=== PATIENT | male | born 1965 | race American Indian/Alaskan Native ===

== ENCOUNTER 2020-06-23 18:09 | Inpatient (IN) | payer OTHER ==
[2020-06-23 18:56] LABS: Hematocrit 31.7 % (35.5-45.6); Mean Corpuscular HGB Conc 35 % (32-34); Mean Corpuscular Volume 93 fl (84-94); Platelet Count 168 K/mm3 (140-440); Red Cell Distribution Width 12.7 % (13.2-15.2)
[2020-06-23 18:58] LABS: Albumin 2.6 g/dL (3.9-5); Calcium 8.7 mg/dL (8.4-10.2)
[2020-06-23 21:31] LABS: Basophils % (Manual) 0 % (0.0-1.8); Total Cells Counted 100
[2020-06-23 21:32] LABS: Platelet Estimate Consistent w Auto; RBC Morphology Normal
[2020-06-23 21:52] LABS: Bilirubin,Urine NEG (Negative); Blood,Urine SM (Negative); Color,Urine Straw (Yellow); Mucus,Urine FEW /HPF; Protein,Urine <15 mg/dL mg/dL (Negative); Urobilinogen,Urine < 2.0 mg/dL (<2.0)
[2020-06-23 21:59] LABS: Amphetamine Screen,Urine Negative; Benzodiazepines Screen,Urine Negative; Cannabinoid Screen,Urine Negative; Cocaine Screen,Urine Negative; Methadone Screen,Urine Negative; Opiate Screen,Urine Negative
[2020-06-23] MEDS ORDERED: SODIUM CHLORIDE 0.9% 1000 ML 1,000 ML IV ONE (22:14)
[2020-06-23] MEDS ORDERED: ONDANSETRON 4 MG/2 ML INJ IV ONE (22:14)
--- NOTE | 2020-06-23 22:18 | Emergency Department Report ---
ED General Adult HPI - General Chief complaint: Recheck/Abnormal Lab/Rx Stated complaint: ABNORMAL LABS Time Seen by Provider: 06/23/20 18:20 Source: patient Mode of arrival: Ambulatory Limitations: No Limitations - History of Present Illness Initial comments: Patient is 55 years old male currently admitted to [facility] voluntarily for suicidal ideation and drug rehab. Patient has history of diabetes and hypertension. Patient brought to the emergency room for evaluation of abnormal creatinine. Patient brought to the emergency room with a paper stating that he has a creatinine done on June 19 and it was 2.2. Creatinine repeated yesterday and he was 6.9 and today his creatinine is 7. Patient stated that he has nausea but no vomiting. Patient stated that he has been drinking and eating well. Patient denies any shortness of breath, chest pain, weakness numbness or tingling sensation. -: days(s) - Related Data Allergies Allergy/AdvReac Type Severity Reaction Status Date / Time No Known Allergies Allergy Unverified 06/23/20 18:11 ED Review of Systems ROS: Stated complaint: ABNORMAL LABS Other details as noted in HPI Comment: All other systems reviewed and negative Constitutional: denies: chills, fever Respiratory: denies: cough, orthopnea, shortness of breath, SOB with exertion, SOB at rest, stridor, wheezing Cardiovascular: denies: chest pain, palpitations Gastrointestinal: nausea, vomiting. denies: abdominal pain, diarrhea, constipation, hematemesis, melena, hematochezia Musculoskeletal: denies: back pain Neurological: denies: headache, weakness ED Past Medical Hx - Past Medical History Hx Hypertension: Yes Hx Diabetes: Yes Hx Psychiatric Treatment: Yes (MAJOR DEPRESSIVE DISORDER, POLYSUBSTANCE ABUSE/ ANXIETY) Additional medical history: HIV/PE - Surgical History Additional Surgical History: GASTRIC BYPASS/KIDNEY STONE - Social History Smoking Status: Never Smoker Substance Use Type: Alcohol, Cocaine ED Physical Exam - General Limitations: No Limitations General appearance: alert, in no apparent distress - Head Head exam: Present: atraumatic, normocephalic, normal inspection - Eye Eye exam: Present: normal appearance, PERRL - ENT ENT exam: Present: mucous membranes dry - Neck Neck exam: Present: normal inspection, full ROM. Absent: tenderness, meningismus - Respiratory Respiratory exam: Present: normal lung sounds bilaterally - Cardiovascular Cardiovascular Exam: Present: regular rate, normal rhythm, normal heart sounds - GI/Abdominal GI/Abdominal exam: Present: soft, normal bowel sounds. Absent: distended, tenderness, guarding, rebound, rigid, organomegaly, mass, bruit, pulsatile mass, hernia - Extremities Exam Extremities exam: Present: normal inspection, full ROM, normal capillary refill. Absent: pedal edema, calf tenderness - Back Exam Back exam: Present: normal inspection, full ROM. Absent: CVA tenderness (R), CVA tenderness (L) - Neurological Exam Neurological exam: Present: alert, oriented X3, CN II-XII intact, normal gait, reflexes normal. Absent: motor sensory deficit - Psychiatric Psychiatric exam: Present: normal mood - Skin Skin exam: Present: warm, intact, normal color ED Course Vital Signs 06/23/20 18:15 Temperature 98.6 F Pulse Rate 87 Respiratory 20 Rate Blood Pressure 189/94 O2 Sat by Pulse 96 Oximetry ED Medical Decision Making - Lab Data Result diagrams: 06/23/20 18:26 06/23/20 18:26 - Radiology Data Radiology results: report reviewed Critical care attestation.: If time is entered above; I have spent that time in minutes in the direct care of this critically ill patient, excluding procedure time. ED Disposition Clinical Impression: Acute renal failure Disposition: OP ADMIT IP TO THIS HOSP Is pt being admited?: Yes Condition: Stable
[2020-06-23] MEDS ORDERED: SODIUM CHLORIDE 0.9% 1000 ML 1,000 ML IV SCH (23:45)
[2020-06-24] MEDS ORDERED: ONDANSETRON 4 MG/2 ML INJ IV PRN (00:02)
[2020-06-24] MEDS ORDERED: traMADol 50 MG TAB PO PRN (00:02)
[2020-06-24] MEDS ORDERED: traZODone 50 MG TAB PO PRN (00:02)
[2020-06-24] MEDS ORDERED: LACTULOSE 20 GM/30 ML ORAL LIQD PO PRN (00:02)
--- NOTE | 2020-06-24 00:14 | XRay Report ---
CHEST 1 VIEW INDICATION / CLINICAL INFORMATION: SOB. COMPARISON: Chest CT 10/18/2019 FINDINGS: SUPPORT DEVICES: None. HEART / MEDIASTINUM: No significant abnormality. LUNGS / PLEURA: No significant pulmonary or pleural abnormality. No pneumothorax. ADDITIONAL FINDINGS: No significant additional findings. IMPRESSION: 1. No acute findings. Signer Name: Mckenna Hurtado MD Signed: 06/24/2020 12:10 AM Workstation Name: [id number]
--- NOTE | 2020-06-24 01:38 | History and Physical Report ---
History of Present Illness Date of examination: 06/23/20 Date of admission: 06/23/20 23:25 Chief complaint: MAIK History of present illness: Patient is 55 years old male currently admitted to [facility] voluntarily for suicidal ideation and drug rehab. Patient has history of diabetes and hypertension. Patient brought to the emergency room for e valuation of abnormal creatinine. Per ED record-Patient brought to the emergency room with a paper stating that he has a creatinine done on June 19 and it was 2.2. Creatinine repeated yesterday and he was 6.9 and today his creatinine is 7. Patient stated that he has nausea but no vomiting. Patient seen in Ed in no acute distress-on room air. He admits drinking and eating well. Patient denies any shortness of breath, chest pain, weakness numbness or tingling sensation. ED Work up shows: WBC 4.5, hemoglobin 11.0, sodium 128, potassium 4.1 C02 14, serum glucose 143 patient started on IV hydration with bicarb Chest [id number] no acute finding Past History Past Medical History: diabetes, hypertension, renal failure, other (Bipolar, anxiety depression) Past Surgical History: No surgical history Social history: smoking, alcohol abuse, IV drug use Family history: no significant family history Medications and Allergies Allergies Allergy/AdvReac Type Severity Reaction Status Date / Time No Known Allergies Allergy Verified 06/24/20 00:07 Active Meds: Active Medications Sodium Chloride (Nacl 0.9% 1000 Ml) 1,000 mls @ 100 mls/hr IV DIRECT LYDIA Lactulose (Cephulac) 20 gm PO QHS PRN PRN Reason: Constipation Ondansetron HCl (Zofran) 4 mg IV Q4H PRN PRN Reason: Nausea And Vomiting Tramadol HCl (Ultram) 25 mg PO Q4H PRN PRN Reason: Pain, Moderate (4-6) Trazodone HCl (Desyrel) 50 mg PO QHS PRN PRN Reason: Insomnia Review of Systems Constitutional: no lethargy, no chronic headaches Ears, nose, mouth and throat: no epistaxis Cardiovascular: high blood pressure, no rapid/irregular heart beat Respiratory: no respiratory infections Gastrointestinal: no abdominal pain Genitourinary Male: no hematuria Rectal: no incontinence Musculoskeletal: no shooting arm pain, no arm numbness/tingling Psychiatric: other (Patient has hx of Psych-came from [facility] with abnormal kidney function) Endocrine: no flushing, no increase in ring/shoe/hat size Hematologic/Lymphatic: no lymphadenopathy Exam - Constitutional Vitals: Temp Pulse Resp BP Pulse Ox 99.0 F 76 20 183/101 93 06/24/20 01:28 06/24/20 01:28 06/24/20 01:28 06/24/20 01:28 06/24/20 01:28 General appearance: Present: no acute distress, obese - EENT Eyes: Present: PERRL ENT: hearing intact, clear oral mucosa - Neck Neck: Present: supple, normal ROM - Respiratory Respiratory effort: normal Respiratory: bilateral: CTA - Cardiovascular Heart rate: 76 Heart Sounds: Present: S1 & S2. Absent: rub, click - Extremities Extremities: pulses symmetrical, No edema Peripheral Pulses: within normal limits - Abdominal General gastrointestinal: Present: soft, non-tender, non-distended, normal bowel sounds Male genitourinary: Present: normal - Integumentary Integumentary: Present: clear, warm, dry - Musculoskeletal Musculoskeletal: gait normal, strength equal bilaterally - Psychiatric Psychiatric: cooperative - Neurologic Neurologic: CNII-XII intact, moves all extremities - Allied Health Allied health notes reviewed: nursing Results - Labs CBC & Chem 7: 06/23/20 18:26 06/23/20 18:26 Labs: Abnormal lab results 06/23/20 06/23/20 Range/Units 18:26 18:26 RBC 3.40 L (3.65-5.03) M/mm3 Hgb 11.0 L (11.8-15.2) gm/dl Hct 31.7 L (35.5-45.6) % MCHC 35 H (32-34) % RDW 12.7 L (13.2-15.2) % Monocytes % (Manual) 13.0 H (0.0-7.3) % Sodium 128 L (137-145) mmol/L Carbon Dioxide 14 L (22-30) mmol/L BUN 55 H (9-20) mg/dL Creatinine 7.0 H (0.8-1.3) mg/dL Glucose 143 H (75-100) mg/dL Total Protein 11.5 H (6.3-8.2) g/dL Albumin 2.6 L (3.9-5) g/dL Assessment and Plan - Patient Problems (1) Acute renal failure Current Visit: Yes Status: Acute Plan to address problem: MAIK ? cause IV hydration with normal saline Office Support Specialist consult Renal US-f/u with result Monitor Kidney function Avoid nephrotoxic drug (2) Hypertension Current Visit: Yes Status: Acute Plan to address problem: Monitor blood pressure PRN labetolol Will resume home BP med Will adjust BP if needed (3) Illicit drug use Current Visit: Yes Status: Acute Plan to address problem: Patie admits cocain use 05/30, 06/15 Discussed cacain use cessation (4) Anxiety and depression Current Visit: Yes Status: Acute Plan to address problem: Patient came from [facility] due to reduced kidney function Resume ant Psychotic meds Psych consulted (5) Diabetes Current Visit: Yes Status: Acute Plan to address problem: Pt reports hx of diabetes on Metformin Will Hold metformin in the setting of MAIK Office Support Specialist consulted for MAIK Monitor blood sugar with SSI Check Hga1c (6) Metabolic acidosis Current Visit: Yes Status: Acute Plan to address problem: likely 2/2 MAIK Continue bicarb gtt at 75 cc/hr Monitor kidney function (7) Hyponatremia Current Visit: Yes Status: Acute Plan to address problem: possible 2/2 to reduced kidney function/dehydration Monitor sodium levels (8) DVT prophylaxis Current Visit: Yes Status: Acute Plan to address problem: SQH
[2020-06-24 06:26] LABS: Hemoglobin 9.8 gm/dl (11.8-15.2); Mean Corpuscular HGB Conc 34 % (32-34); Mean Corpuscular Volume 93 fl (84-94); Platelet Count 171 K/mm3 (140-440); Red Blood Count 3.12 M/mm3 (3.65-5.03); Red Cell Distribution Width 12.7 % (13.2-15.2)
[2020-06-24 06:27] LABS: Albumin 2.5 g/dL (3.9-5); Calcium 8.6 mg/dL (8.4-10.2)
[2020-06-24 08:08] LABS: Total Cells Counted 100
[2020-06-24 08:09] LABS: Anisocytosis 1+; Platelet Estimate Consistent w Auto
[2020-06-24] MEDS: INSULIN LISPRO 100 UNIT/ML VIAL 3 mL SUB-Q SCH ×4 (08:17→21:48)
[2020-06-24] MEDS ORDERED: LOSARTAN 50 MG TAB PO SCH (10:00)
[2020-06-24] MEDS ORDERED: hydroCHLOROthiazide 25 MG TAB PO SCH (10:00)
[2020-06-24] MEDS: ARIPiprazole 10 MG TAB PO SCH (10:46)
[2020-06-24] MEDS: FLUoxetine 20 MG CAP PO SCH (10:46)
--- NOTE | 2020-06-24 11:00 | Consultation ---
History of Present Illness - Reason for Consult Consult date: 06/24/20 Cellulitis Requesting physician: PEDRO BLANKENSHIP - History of Present Illness 55 years old male with history of morbid obesity, diabetes mellitus, hypertension, depression/suicidal ideation, drug abuse, currently admitted at [facility] voluntarily for suicidal ideation, admitted secondary to abnormal creatinine. Patient also noticed some nausea and generalized malaise. Denies fever, chills, injury. He has chronic left ankle discoloration and edema from an old DVT. Lab work done on June 19, 2020 creatinine found 2.2, repeat creatinine 6.9 on June 23, 2020. On arrival, patient is afebrile and normal WBC. Creat 7. Venous US with left leg acute DVT, right leg chronic DVT. Review of Systems: positive in bold print General: fever, chills, malaise Cutaneous: rash, pruritus Head: headaches or injury Eyes: changes in vision, eye pain, double vision Ears: ear pain, ear discharge, ringing or hearing loss Nose: nose bleeding, stuffiness Mouth & throat: bleeding gums, horseness, no dental problems, or swollen glands Neck: no pain, node enlargement/lumps, tyroid enlargement or tenderness Respiratory: SOB, cough, TAVERA, wheezing, sputum, hemoptysis, pleuritic chest pain Cardiovascular: chest pain, leg edema, cyanosis, TAVERA, orthopnea Musculoskeletal: chronic left ankle deformity and edema Gastrointestinal: nausea, vomiting, hematemesis, diarrhea, constipation, melena, bright red blood in stools, fecal incontinence, jaundice Genitourinary/Reproductive: frequent urination, dysuria, hematuria, incontinence Neurogical: seizures, headaches, weakness, paresthesias, loss of speech or vision; memory loss, vertigo, tremors, numbness Psychiatric: stable mood; excessive anxiety, sadness or moodiness Past History Past Medical History: diabetes, hypertension, renal failure, other (Bipolar, anxiety depression) Past Surgical History: No surgical history Social history: smoking, alcohol abuse, IV drug use Family history: no significant family history Medications and Allergies Allergies Allergy/AdvReac Type Severity Reaction Status Date / Time No Known Allergies Allergy Verified 06/24/20 00:07 Active Meds: Active Medications Aripiprazole (Aripiprazole) 10 mg PO QDAY LYDIA Last Admin: 06/24/20 10:46 Dose: 10 mg Documented by: Fluoxetine HCl (Prozac) 40 mg PO QDAY LYDIA Last Admin: 06/24/20 10:46 Dose: 40 mg Documented by: Sodium Chloride (Nacl 0.9% 1000 Ml) 1,000 mls @ 100 mls/hr IV DIRECT LYDIA Sodium Bicarbonate 150 meq/ (Dextrose) 1,150 mls @ 75 mls/hr IV DIRECT LYDIA Insulin Human Lispro (Humalog) 0 unit SUB-Q ACHS LYDIA; Protocol Labetalol HCl (Labetalol) 10 mg IV Q6HR PRN PRN Reason: Hypertension Last Admin: 06/24/20 02:07 Dose: 10 mg Documented by: Lactulose (Cephulac) 20 gm PO QHS PRN PRN Reason: Constipation Ondansetron HCl (Zofran) 4 mg IV Q4H PRN PRN Reason: Nausea And Vomiting Quetiapine Fumarate (Seroquel) 50 mg PO QHS LYDIA Tramadol HCl (Ultram) 25 mg PO Q4H PRN PRN Reason: Pain, Moderate (4-6) Trazodone HCl (Desyrel) 50 mg PO QHS PRN PRN Reason: Insomnia Last Admin: 06/24/20 02:07 Dose: 50 mg Documented by: Physical Examination - Physical Exam Narrative exam: General appearance: Alert in NAD pleasant Eyes: anicteric sclerae, moist conjunctivae; no lid-lag; PERRLA HENT: Normocephalic, Atraumatic; normal external ears, nares open, oropharynx clear Neck: supple, tracheal midline, no JVD Lungs: CTA, with normal respiratory effort and no intercostal retractions CV: RRR no murmur Abdomen: Soft, non-tender; no masses or hepatosplenomegaly Extremities: gregorio leg varus deformities, left ankle deformity, chronic skin discoloaration, edemaand heat Skin: No rash. Psych: no agitated Neuro: alert and oriented x 3. Moving all extermities - Constitutional Vitals: Vital Signs Temp Pulse Resp BP Pulse Ox 98.3 F 78 20 136/74 96 06/24/20 07:40 06/24/20 08:02 06/24/20 07:40 06/24/20 07:40 06/24/20 07:40 Temperature -Last 24 Hours Temperature 98.3 F Temperature 98.4 F Temperature 99.0 F Temperature 98.6 F Results - Labs CBC & Chem 7: 06/24/20 04:00 06/24/20 10:21 Labs: Abnormal lab results 06/23/20 06/23/20 06/24/20 Range/Units 18:26 18:26 01:55 WBC (4.5-11.0) K/mm3 RBC 3.40 L (3.65-5.03) M/mm3 Hgb 11.0 L (11.8-15.2) gm/dl Hct 31.7 L (35.5-45.6) % MCHC 35 H (32-34) % RDW 12.7 L (13.2-15.2) % Seg Neuts % (Manual) (40.0-70.0) % Monocytes % (Manual) 13.0 H (0.0-7.3) % Lymphocytes # (Manual) (1.2-5.4) K/mm3 D-Dimer 291.13 H (0-234) ng/mlDDU Sodium 128 L (137-145) mmol/L Chloride (98-107) mmol/L Carbon Dioxide 14 L (22-30) mmol/L BUN 55 H (9-20) mg/dL Creatinine 7.0 H (0.8-1.3) mg/dL Glucose 143 H (75-100) mg/dL Phosphorus (2.5-4.5) mg/dL Total Protein 11.5 H (6.3-8.2) g/dL Albumin 2.6 L (3.9-5) g/dL 06/24/20 06/24/20 06/24/20 Range/Units 01:57 04:00 04:00 WBC 4.0 L (4.5-11.0) K/mm3 RBC 3.12 L (3.65-5.03) M/mm3 Hgb 9.8 L (11.8-15.2) gm/dl Hct 29.0 L (35.5-45.6) % MCHC (32-34) % RDW 12.7 L (13.2-15.2) % Seg Neuts % (Manual) 73.0 H (40.0-70.0) % Monocytes % (Manual) 9.0 H (0.0-7.3) % Lymphocytes # (Manual) 0.6 L (1.2-5.4) K/mm3 D-Dimer (0-234) ng/mlDDU Sodium 134 L (137-145) mmol/L Chloride 109.9 H (98-107) mmol/L Carbon Dioxide 20 L (22-30) mmol/L BUN 57 H (9-20) mg/dL Creatinine 7.1 H (0.8-1.3) mg/dL Glucose 106 H (75-100) mg/dL Phosphorus 4.90 H (2.5-4.5) mg/dL Total Protein 11.1 H (6.3-8.2) g/dL Albumin 2.5 L (3.9-5) g/dL Assessment and Plan Cultures: none Assessment: 55 years old male with history of morbid obesity, diabetes mellitus, hypertension, depression/suicidal ideation, drug abuse, currently admitted at [facility] voluntarily for suicidal ideation, admitted secondary to abnormal creatinine: #Left ankle chronic edema and skin discoloration less likely cellulitis. On exam positive heat. Patient with no fever and no leukocytosis, no evidence of sepsis. US with acute left leg DVT. #Left leg acute DVT #MAIK: per renal Recommendations: -Monitor off antibiotics doubt cellulitis -DVT management per PCP -Check CRP Will follow. Gayle Gallo MD Infectious Diseases Boiler Testing Technician [facility] M [phone] O [phone]
--- NOTE | 2020-06-24 11:17 | Consultation ---
History of Present Illness - Reason for Consult Consult date: 06/24/20 Reason for consult: SI, from [facility] - History of Present Psychiatric Illness Lv Gipson is a 55y/o male patient who presented to the ER from [facility] for evaluation of abnormal labs. The patient says "my kidney labs were off." The patient says he checked himself into [facility] for suicidal thoughts. He says he has been "detached from my family." The patient also verba lizes "crack" usage. He also says he "drinks a 6 pack daily and a 5th of Vodka over 2 days." The patient says his last drinks was "June 15." he denies any withdrawal symptoms. He says he is "severely depressed and has suicidal thoughts that come and go." He states, "but at the moment I'm not suicidal." He says he was just started on medicatons at [place]. The patient denies hallucinations o f any kind. PAST PSYCHIATRIC HISTORY Diagnoses: bipolar Suicide attempts or Self-harm behavior: Denies Prior psychiatric hospitalizations: Yes Substance Abuse history: None reported Previous psychiatric medications tried: abilify, prozac, seroquel Outpatient treatment: [facility] PAST MEDICAL HISTORY: None reported Family Psychiatric History: None reported or documented SOCIAL HISTORY Marital Status: Single Living Arrangements: with family Employment Status: Unemployed Access to guns/weapons: None reported Education: high school History of Abuse: None reported Legal History: Denies REVIEW OF SYSTEMS Constitutional: Negative for weight loss ENT: Negative for stridor Respiratory: Negative for cough or hemoptysis All other systems reviewed and are negative MENTAL STATUS EXAMINATION General Appearance and Behavior: Age appropriate, good hygiene, wearing appropriate clothes, good eye contact Cooperation: Participating/engaged Psychomotor Behavior: Psychomotor normal Mood: "severely depressed" Affect and affective range: Congruent with mood Thought Process: logical Thought Content: hopelessness Speech: Normal rate, volume and rhythm Suicidal Ideation: comes and goes Homicidal Ideation: Denies HI Hallucinations: Denies Delusions: None elicited Impulse Control: Impaired Insight and Judgment: Limited insight and judgment Memory: Normal Attention: Normal Orientation: Alert, oriented Assessment and Plan Bipolar Disorder, Current Episode Depressed w/o Psychotic Features Cocaine Use Disorder Alcohol Use Disorder Treatment Plan Agree with current meds Sitter: Defer to primary Medical: Per primary Disposition: TBD once medically clear. Will see how the patient progresses. If suicidal thoughts return, and the patient continues to be severely depressed will likely need to return to [facility]. Will follow. Thank you for this consult. Case discussed with Dr. Dominguez. Medications and Allergies Allergies Allergy/AdvReac Type Severity Reaction Status Date / Time No Known Allergies Allergy Verified 06/24/20 00:07 Active Meds: Active Medications Aripiprazole (Aripiprazole) 10 mg PO QDAY LYDIA Last Admin: 06/24/20 10:46 Dose: 10 mg Documented by: Fluoxetine HCl (Prozac) 40 mg PO QDAY LYDIA Last Admin: 06/24/20 10:46 Dose: 40 mg Documented by: Sodium Chloride (Nacl 0.9% 1000 Ml) 1,000 mls @ 100 mls/hr IV DIRECT LYDIA Sodium Bicarbonate 150 meq/ (Dextrose) 1,150 mls @ 75 mls/hr IV DIRECT LYDIA Insulin Human Lispro (Humalog) 0 unit SUB-Q ACHS LYDIA; Protocol Labetalol HCl (Labetalol) 10 mg IV Q6HR PRN PRN Reason: Hypertension Last Admin: 06/24/20 02:07 Dose: 10 mg Documented by: Lactulose (Cephulac) 20 gm PO QHS PRN PRN Reason: Constipation Ondansetron HCl (Zofran) 4 mg IV Q4H PRN PRN Reason: Nausea And Vomiting Quetiapine Fumarate (Seroquel) 50 mg PO QHS LYDIA Tramadol HCl (Ultram) 25 mg PO Q4H PRN PRN Reason: Pain, Moderate (4-6) Trazodone HCl (Desyrel) 50 mg PO QHS PRN PRN Reason: Insomnia Last Admin: 06/24/20 02:07 Dose: 50 mg Documented by: Mental Status Exam - Vital signs Last Vital Signs Temp 98.3 F 06/24/20 07:40 Pulse 78 06/24/20 08:02 Resp 20 06/24/20 07:40 BP 136/74 06/24/20 07:40 Pulse Ox 96 06/24/20 07:40 Results Result Diagrams: 06/24/20 04:00 06/24/20 04:00 Abnormal lab results 06/23/20 06/23/20 06/24/20 Range/Units 18:26 18:26 01:55 WBC (4.5-11.0) K/mm3 RBC 3.40 L (3.65-5.03) M/mm3 Hgb 11.0 L (11.8-15.2) gm/dl Hct 31.7 L (35.5-45.6) % MCHC 35 H (32-34) % RDW 12.7 L (13.2-15.2) % Seg Neuts % (Manual) (40.0-70.0) % Monocytes % (Manual) 13.0 H (0.0-7.3) % Lymphocytes # (Manual) (1.2-5.4) K/mm3 D-Dimer 291.13 H (0-234) ng/mlDDU Sodium 128 L (137-145) mmol/L Chloride (98-107) mmol/L Carbon Dioxide 14 L (22-30) mmol/L BUN 55 H (9-20) mg/dL Creatinine 7.0 H (0.8-1.3) mg/dL Glucose 143 H (75-100) mg/dL Phosphorus (2.5-4.5) mg/dL Total Protein 11.5 H (6.3-8.2) g/dL Albumin 2.6 L (3.9-5) g/dL 06/24/20 06/24/20 06/24/20 Range/Units 01:57 04:00 04:00 WBC 4.0 L (4.5-11.0) K/mm3 RBC 3.12 L (3.65-5.03) M/mm3 Hgb 9.8 L (11.8-15.2) gm/dl Hct 29.0 L (35.5-45.6) % MCHC (32-34) % RDW 12.7 L (13.2-15.2) % Seg Neuts % (Manual) 73.0 H (40.0-70.0) % Monocytes % (Manual) 9.0 H (0.0-7.3) % Lymphocytes # (Manual) 0.6 L (1.2-5.4) K/mm3 D-Dimer (0-234) ng/mlDDU Sodium 134 L (137-145) mmol/L Chloride 109.9 H (98-107) mmol/L Carbon Dioxide 20 L (22-30) mmol/L BUN 57 H (9-20) mg/dL Creatinine 7.1 H (0.8-1.3) mg/dL Glucose 106 H (75-100) mg/dL Phosphorus 4.90 H (2.5-4.5) mg/dL Total Protein 11.1 H (6.3-8.2) g/dL Albumin 2.5 L (3.9-5) g/dL All other labs normal.
[2020-06-24 11:42] LABS: Calcium 8.4 mg/dL (8.4-10.2)
[2020-06-24 11:42] LABS: Osmolality,Urine 268 Mosm/kg
[2020-06-24] MEDS ORDERED: FLU VACC QUAD 2020-2021 (6 months +)/PF 60 0.5 ML SYRINGE IM ONE (12:00)
--- NOTE | 2020-06-24 12:17 | Consultation ---
History of Present Illness - Reason for Consult Consult date: 06/24/20 acute renal failure - History of Present Illness This is a 55 year old male currently admitted to [facility] voluntarily for suicidal ideation and drug rehab who presents for MAIK. Patient has history of diabetes and hypertension, notes a prior creatinine of 2.2 earlier this month. States that he has never known of any kidney issues but was told in the past that he has protein in his urine. Creatinine repeated yesterday and was 6.9 so he was sent to ED. He notes that he feels well and denies any acute issues. He admits drinking and eating well. Patient denies any shortness of breath, chest pain, weakness numbness or tingling sensation, appetite changes. Notes normal urination. Denies any new medications, alcohol/methanol ingestion, IV drugs, salicylate/NSAID use. No new supplements. Past History Past Medical History: diabetes, hypertension, renal failure, other (Bipolar, anxiety depression) Past Surgical History: No surgical history Social history: smoking, alcohol abuse, IV drug use Family history: no significant family history Medications and Allergies Allergies Allergy/AdvReac Type Severity Reaction Status Date / Time No Known Allergies Allergy Verified 06/24/20 00:07 Active Meds: Active Medications Aripiprazole (Aripiprazole) 10 mg PO QDAY [facility] Last Admin: 06/24/20 10:46 Dose: 10 mg Documented by: Fluoxetine HCl (Prozac) 40 mg PO QDAY LYDIA Last Admin: 06/24/20 10:46 Dose: 40 mg Documented by: Sodium Chloride (Nacl 0.9% 1000 Ml) 1,000 mls @ 100 mls/hr IV DIRECT LYDIA Sodium Bicarbonate 150 meq/ (Dextrose) 1,150 mls @ 75 mls/hr IV DIRECT LYDIA Insulin Human Lispro (Humalog) 0 unit SUB-Q ACHS [facility]; Protocol Labetalol HCl (Labetalol) 10 mg IV Q6HR PRN PRN Reason: Hypertension Last Admin: 06/24/20 02:07 Dose: 10 mg Documented by: Lactulose (Cephulac) 20 gm PO QHS PRN PRN Reason: Constipation Ondansetron HCl (Zofran) 4 mg IV Q4H PRN PRN Reason: Nausea And Vomiting Quetiapine Fumarate (Seroquel) 50 mg PO QHS LYDIA Tramadol HCl (Ultram) 25 mg PO Q4H PRN PRN Reason: Pain, Moderate (4-6) Trazodone HCl (Desyrel) 50 mg PO QHS PRN PRN Reason: Insomnia Last Admin: 06/24/20 02:07 Dose: 50 mg Documented by: Review of Systems All systems: negative (as per HPI) Exam - Vital Signs Vital signs: Vital Signs Temp Pulse Resp BP Pulse Ox 98.6 F 87 20 189/94 96 06/23/20 18:15 06/23/20 18:15 06/23/20 18:15 06/23/20 18:15 06/23/20 18:15 - Physical Exam Narrative exam: Constitutional: no acute distress Head: NC/AT Neck: supple Lungs: clear to auscultation CV: RRR, no M/R/G Abdomen: soft, non-tender, bowel sounds present Back: nontender Extremities: no edema, pulses WNL Skin: intact Neuro: no focal deficits, alert and oriented x4 Results - Lab Results 06/24/20 04:00 06/24/20 10:21 Most recent lab results Calcium 8.4 mg/dL (8.4-10.2) 06/24/20 10:21 Phosphorus 4.90 mg/dL (2.5-4.5) H 06/24/20 01:57 Magnesium 1.90 mg/dL (1.7-2.3) 06/24/20 01:57 Urine Sodium 74 mmol/L 06/24/20 06:00 Assessment and Plan # Acute Kidney Injury: unclear cause of MAIK, consider obstruction given acuity. On IVF for pre-renal consideration. Denies any toxic ingestion with panels mostly WNL. Potential glomerular causes given hematuria, no proteinuria noted. Little to suggest interstitial injury. BP reasonable. Potential injury from IV drug use. - renal ultrasound pending to r/o obstruction - toxicology reviewed as available, ordered methanol/isopropyl screens - serologies ordered, check CK - agree with IVF as tolerated - strict Is/Os - avoid nephrotoxins - holding home diuretic, SHIRA/ARB - biopsy pending above - no immediate HD indications, will follow based on lab trend, consider 24 hour creatinine clearance if not improving with no obvious cause # HTN: holding home meds given MAIK, use carvedilol or amlodipine if needed for now # Acidosis: likely due to MAIK, agree with HCO3 repletion # Illicit Drug Use: noted per primary, did not admit use to myself # Depression: appreciate psych input # DM: agree with holding metformin # Secondary Hyperparathyroidism: P mildly high, PTH reasonable for this kidney function
[2020-06-24 12:49] LABS: Creatinine,Urine 69.2 mg/dL (0.1-20.0); Protein/Creatinine Ratio,Urine 0.48
--- NOTE | 2020-06-24 14:56 | Progress Note ---
Assessment and Plan --Acute left lower extremity DVT Placed on heparin drip to bridge with Coumadin -- MAIK on CKD Likely due to ATN Continue IV hydration with normal saline Restorative Art Embalmer consulted Renal US order-f/u with result Monitor Kidney function daily Avoid nephrotoxic drug -- Hypertension Monitor blood pressure PRN labetolol Resumed home BP med and adjust BP if needed -- Illicit drug use Patie admits cocain use 05/30, 06/15 Discussed cacain use cessation --Anxiety and depression Patient came from [facility] due to reduced kidney function Resume ant Psychotic meds Psych consulted -- Diabetes type 2 Pt reports hx of diabetes on Metformin Will Hold metformin in the setting of MAIK Restorative Art Embalmer consulted for MAIK Monitor blood sugar with SSI Check Hga1c -- Metabolic acidosis likely 2/2 MAIK Continue bicarb gtt at 75 cc/hr Monitor kidney function -- Hyponatremia possible 2/2 to reduced kidney function/dehydration Monitor sodium levels --Morbid obesity with BMI 46.7 Weight reduction counseling with diet and exercise when clinically stable as outpatient -- DVT prophylaxis SQH brief History: This is a 55 year old male with h/o DM, HTN, CKD with a prior creatinine of 2.2 earlier this month currently admitted to [facility] voluntarily for suicidal ideation and drug rehab who presented to [facility] for MAIK. Denies any new medications, alcohol/methanol ingestion, IV drugs, salicylate/ NSAID use. BUN/Cr in the Er was 55/7.0, patient placed on IV fluid, consulted nephrology and admitted for further mx. 06/24: Continue to monitor BMP, continue IV fluid. Follow psychiatry and nephr ology recommendation. start heparin drip for acute LE DVT Subjective Date of service: 06/24/20 Interval history: Patient seen and examined. Medical records and medication list reviewed. No acute event overnight noted by the RN. Patient denies any chest pain or difficulty breathing. Patient is tolerating diet. Discussed plan of care at bedside with patient. Objective - Exam Narrative Exam: GENERAL: well-developed and morbidly obese -[place] male lying on bed appeared to be in no discomfort. HEENT: Normocephalic. Atraumatic. No conjunctival congestion or icterus. Patient has moist mucous membranes. NECK: Supple. Trachea midline. CHEST/LUNGS: Clear to auscultated bilaterally, breathing nonlabored. No wheezes crackles or rhonchi. HEART/CARDIOVASCULAR: Regular in rate and rhythm. S1 and S2 positive. ABDOMEN: Abdomen is soft, nontender. Patient has normal bowel sounds. SKIN: There is no rash. Warm and dry. NEURO: No focal motor deficit. Follows command. MUSCULOSKELETAL: No joint effusion or tenderness. EXTRIMITY: No edema, no cyanosis or clubbing. Left lower extremity calf tenderness PSYCH: Cooperative. - Constitutional Vitals: Vital Signs - 12hr 06/24/20 06/24/20 06/24/20 04:09 07:40 08:02 Temperature 98.4 F 98.3 F Pulse Rate 78 77 78 Respiratory 16 20 Rate Blood Pressure 125/68 136/74 O2 Sat by Pulse 95 96 Oximetry 06/24/20 11:51 Temperature 97.9 F Pulse Rate 59 L Respiratory 18 Rate Blood Pressure 154/84 O2 Sat by Pulse 94 Oximetry - Labs CBC & Chem 7: 06/28/20 05:40 06/29/20 05:06 Labs: Abnormal lab results 06/23/20 06/23/20 06/24/20 Range/Units 18:26 18:26 01:55 WBC (4.5-11.0) K/mm3 RBC 3.40 L (3.65-5.03) M/mm3 Hgb 11.0 L (11.8-15.2) gm/dl Hct 31.7 L (35.5-45.6) % MCHC 35 H (32-34) % RDW 12.7 L (13.2-15.2) % Seg Neuts % (Manual) (40.0-70.0) % Monocytes % (Manual) 13.0 H (0.0-7.3) % Lymphocytes # (Manual) (1.2-5.4) K/mm3 D-Dimer 291.13 H (0-234) ng/mlDDU Sodium 128 L (137-145) mmol/L Chloride (98-107) mmol/L Carbon Dioxide 14 L (22-30) mmol/L BUN 55 H (9-20) mg/dL Creatinine 7.0 H (0.8-1.3) mg/dL Glucose 143 H (75-100) mg/dL Phosphorus (2.5-4.5) mg/dL Total Protein 11.5 H (6.3-8.2) g/dL Albumin 2.6 L (3.9-5) g/dL PTH Intact (15-65) pg/mL Urine Creatinine (0.1-20.0) mg/dL Urine Total Protein (5-11.8) mg/dL Salicylates (2.8-20.0) mg/dL Acetaminophen (10.0-30.0) ug/mL 06/24/20 06/24/20 06/24/20 Range/Units 01:57 04:00 04:00 WBC 4.0 L (4.5-11.0) K/mm3 RBC 3.12 L (3.65-5.03) M/mm3 Hgb 9.8 L (11.8-15.2) gm/dl Hct 29.0 L (35.5-45.6) % MCHC (32-34) % RDW 12.7 L (13.2-15.2) % Seg Neuts % (Manual) 73.0 H (40.0-70.0) % Monocytes % (Manual) 9.0 H (0.0-7.3) % Lymphocytes # (Manual) 0.6 L (1.2-5.4) K/mm3 D-Dimer (0-234) ng/mlDDU Sodium 134 L (137-145) mmol/L Chloride 109.9 H (98-107) mmol/L Carbon Dioxide 20 L (22-30) mmol/L BUN 57 H (9-20) mg/dL Creatinine 7.1 H (0.8-1.3) mg/dL Glucose 106 H (75-100) mg/dL Phosphorus 4.90 H (2.5-4.5) mg/dL Total Protein 11.1 H (6.3-8.2) g/dL Albumin 2.5 L (3.9-5) g/dL PTH Intact (15-65) pg/mL Urine Creatinine (0.1-20.0) mg/dL Urine Total Protein (5-11.8) mg/dL Salicylates (2.8-20.0) mg/dL Acetaminophen (10.0-30.0) ug/mL 06/24/20 06/24/20 06/24/20 Range/Units 10:21 10:21 10:21 WBC (4.5-11.0) K/mm3 RBC (3.65-5.03) M/mm3 Hgb (11.8-15.2) gm/dl Hct (35.5-45.6) % MCHC (32-34) % RDW (13.2-15.2) % Seg Neuts % (Manual) (40.0-70.0) % Monocytes % (Manual) (0.0-7.3) % Lymphocytes # (Manual) (1.2-5.4) K/mm3 D-Dimer (0-234) ng/mlDDU Sodium (137-145) mmol/L Chloride (98-107) mmol/L Carbon Dioxide (22-30) mmol/L BUN (9-20) mg/dL Creatinine (0.8-1.3) mg/dL Glucose (75-100) mg/dL Phosphorus (2.5-4.5) mg/dL Total Protein (6.3-8.2) g/dL Albumin (3.9-5) g/dL PTH Intact 76.57 H (15-65) pg/mL Urine Creatinine (0.1-20.0) mg/dL Urine Total Protein (5-11.8) mg/dL Salicylates < 0.3 L (2.8-20.0) mg/dL Acetaminophen 5.0 L (10.0-30.0) ug/mL 06/24/20 06/24/20 Range/Units 10:21 Unknown WBC (4.5-11.0) K/mm3 RBC (3.65-5.03) M/mm3 Hgb (11.8-15.2) gm/dl Hct (35.5-45.6) % MCHC (32-34) % RDW (13.2-15.2) % Seg Neuts % (Manual) (40.0-70.0) % Monocytes % (Manual) (0.0-7.3) % Lymphocytes # (Manual) (1.2-5.4) K/mm3 D-Dimer (0-234) ng/mlDDU Sodium 132 L (137-145) mmol/L Chloride 107.9 H (98-107) mmol/L Carbon Dioxide 16 L (22-30) mmol/L BUN 55 H (9-20) mg/dL Creatinine 6.9 H (0.8-1.3) mg/dL Glucose 143 H (75-100) mg/dL Phosphorus (2.5-4.5) mg/dL Total Protein (6.3-8.2) g/dL Albumin (3.9-5) g/dL PTH Intact (15-65) pg/mL Urine Creatinine 69.2 H (0.1-20.0) mg/dL Urine Total Protein 33 H (5-11.8) mg/dL Salicylates (2.8-20.0) mg/dL Acetaminophen (10.0-30.0) ug/mL
[2020-06-24] MEDS ORDERED: HEPARIN 10,000 UNITS/10 ML VIAL IV ONE ×2 (16:20→20:00)
--- NOTE | 2020-06-24 16:28 | Vascular Lab Report ---
DUPLEX DOPPLER LOWER EXTREMITY VEINS, BILATERAL INDICATION / CLINICAL INFORMATION: hx dvt. TECHNIQUE: Duplex doppler imaging was performed through the veins of both lower extremities using venous javier eduardo and other maneuvers. COMPARISON: None available. FINDINGS: RIGHT COMMON FEMORAL VEIN: Chronic thrombus. No acute thrombus. RIGHT FEMORAL VEIN: Negative. RIGHT POPLITEAL VEIN: Negative. RIGHT CALF VEINS: Negative. LEFT COMMON FEMORAL VEIN: Negative. LEFT FEMORAL VEIN: Acute thrombus distally. LEFT POPLITEAL VEIN: Acute thrombus. LEFT CALF VEINS: Negative. ADDITIONAL FINDINGS: None. IMPRESSION: 1. Acute DVT distal left femoral vein and left popliteal vein. 2. Chronic nonocclusive DVT right common femoral vein. The size worker reported these findings to the patient's nurse at the conclusion of the exam. Signer Name: Luis Antonio Lee MD Signed: 06/24/2020 4:23 PM Workstation Name: [id number]
--- NOTE | 2020-06-24 18:13 | Ultrasound Report ---
ULTRASOUND RENAL INDICATION: MAIK. COMPARISON: No relevant prior imaging study available. FINDINGS: RIGHT KIDNEY: Size: 13.3 cm. Echogenicity: Echogenic. Cortical thickness: 1.9 cm. Hydronephrosis: None. Cyst or mass: None. Stones: None. LEFT KIDNEY: Size: 11.8 cm. Echogenicity: Echogenic. Cortical thickness: 2.1 cm. Hydronephrosis: None. Cyst or mass: None. Stones: None. Urinary Bladder: Collapsed and not visualized. Free Fluid: None. Additional Findings: None. IMPRESSION 1. Echogenic kidneys characteristic for medical renal disease no hydronephrosis. Signer Name: Derian Mahoney MD Signed: 06/24/2020 6:08 PM Workstation Name: [id number]
[2020-06-24] MEDS: SODIUM BICARBONATE 150 MEQ in DEXTROSE 5% IN WATER 1,000 ML IV SCH (18:57)
[2020-06-24 19:34] LABS: Hematocrit 30.2 % (35.5-45.6); Hemoglobin 10.3 gm/dl (11.8-15.2)
[2020-06-24 19:39] LABS: INR 1.25 (0.87-1.13); Partial Thromboplastin Time 30.4 Sec. (24.2-36.6)
[2020-06-24] MEDS: HEPARIN/ 0.45% NACL DRIP 25,000 UNIT/500 ML BAG IV SCH (20:17)
[2020-06-24] MEDS: WARFARIN 7.5 MG TAB PO SCH (20:17)
[2020-06-24] MEDS: QUEtiapine 25 MG TAB PO SCH (21:59)
[2020-06-25 04:06] LABS: Creatine Kinase MB 1.5 ng/mL (0.0-4.0)
[2020-06-25 04:07] LABS: Calcium 8.2 mg/dL (8.4-10.2)
[2020-06-25] MEDS: SODIUM BICARBONATE 150 MEQ in DEXTROSE 5% IN WATER 1,000 ML IV SCH (08:41)
[2020-06-25] MEDS: INSULIN LISPRO 100 UNIT/ML VIAL 3 mL SUB-Q SCH ×4 (09:13→22:06)
[2020-06-25] MEDS: FLUoxetine 20 MG CAP PO SCH (09:13)
[2020-06-25] MEDS: ARIPiprazole 10 MG TAB PO SCH (09:13)
--- NOTE | 2020-06-25 10:00 | Progress Note ---
Subjective - Reason for Consult Consult date: 06/25/20 Reason for consult: MHE Requesting physician: ART JAMES - Chief Complaint Chief complaint: Psych Progress HPI In my interview with the patient this morning, the patient reports mood as depressed, accompanied with poor sleep pattern and appetite. Patient appears irritable, says he was admitted to [facility] due to SI and HI thoughts, patient endorses HI thought towards me just because I wrist up the blinds in the room. Patient states that he still very much depressed, due to social and family circumstances, and that he feels detached from his family. Review of Symptoms: Constitutional: Negative for weight loss ENT: Negative for stridor Respiratory: Negative for cough or hemoptysis All other systems reviewed and are negative MENTAL STATUS EXAMINATION General Appearance and Behavior: Age appropriate, good hygiene, wearing appropriate clothes,, good eye contact Cooperation: Participating/engaged, but Guarded Psychomotor Behavior: Psychomotor normal Mood: depressed Affect and affective range: irritable, labile Thought Process: illogical Thought Content: hopelessness, helplessness Speech: Normal rate, volume and rythm Intellectual Functioning: Average Suicidal Ideation: SI Homicidal Ideation: Denies HI Impulse Control: Impaired Insight and Judgment: Limited insight and judgment Memory: Normal Attention: Normal Orientation: Alert, oriented Assessment and Plan Bipolar Disorder, Current Episode Depressed w/o Psychotic Features Cocaine Use Disorder Alcohol Use Disorder Treatment Plan We will order starting any psych medication at this time due to elevated creatinine and abnormal electrolytes. MEDICATIONS: Risks, benefits and alternatives of medications discussed with the patient, questions answered and consent obtained from patient. PSYCHOTHERAPY: Supportive psychotherapy provided MEDICAL: Per primary team DELIRIUM PRECAUTIONS: Please re-orient patient frequently, keep lights on during the day, and minimize benzodiazepines and opiates as these medications could worsen patient's confusion. CHOP SAW OPERATOR: DISPOSITION: Do Recommend acute inpatient psychiatric hospitalization at this time, patient to be reevaluated when medically stable. LEGAL STATUS: 1013 FOLLOW-UP: Will follow Thank you for the consult. Please contact with any questions and/or concerns. Mental Status Exam - Vital signs Last Vital Signs Temp 98.6 F 06/25/20 07:52 Pulse 70 06/25/20 07:52 Resp 18 06/25/20 07:52 BP 149/83 06/25/20 07:52 Pulse Ox 96 06/25/20 07:52
--- NOTE | 2020-06-25 12:16 | Progress Note ---
Assessment and Plan Cultures: Urine culture no growth Assessment: 55 years old male with history of morbid obesity, diabetes mellitus, hypertension, depression/suicidal ideation, drug abuse, currently admitted at [facility] voluntarily for suicidal ideation, admitted secondary to abnormal creatinine: #Left ankle chronic edema and skin discoloration less likely cellulitis. On exam positive heat. Patient with no fever and no leukocytosis, no evidence of sepsis. US with acute left leg DVT. CRP 1.5. #Left leg acute DVT #MAIK: per renal Recommendations: -Monitor off antibiotics doubt cellulitis -DVT management per PCP will sign off please call us with questions Gayle Gallo MD Infectious Diseases Senior Geologist [facility] ([facility]) M [phone] O [phone] Subjective Date of service: 06/25/20 Principal diagnosis: Rule out cellulitis Interval history: Patient reports he is feeling better, denies any pain, fever Objective - Exam Narrative Exam: General appearance: Alert in NAD pleasant Eyes: anicteric sclerae, moist conjunctivae; no lid-lag; PERRLA HENT: Normocephalic, Atraumatic; normal external ears, nares open, oropharynx clear Neck: supple, tracheal midline, no JVD Lungs: CTA, with normal respiratory effort and no intercostal retractions CV: RRR no murmur Abdomen: Soft, non-tender; no masses or hepatosplenomegaly Extremities: gregorio leg varus deformities, left ankle deformity, chronic skin discoloaration, edemaand heat Skin: No rash. Psych: no agitated Neuro: alert and oriented x 3. Moving all extermities - Constitutional Vitals: Vital Signs Temp Pulse Resp BP Pulse Ox 98.6 F 70 18 149/83 96 06/25/20 07:52 06/25/20 07:52 06/25/20 07:52 06/25/20 07:52 06/25/20 07:52 Temperature -Last 24 Hours Temperature 98.6 F Temperature 98.5 F Temperature 97.8 F Temperature 98.1 F Temperature 98.3 F - Labs CBC & Chem 7: 06/24/20 18:52 06/25/20 03:27 Labs: Abnormal lab results 06/24/20 06/24/20 06/24/20 Range/Units 18:52 18:52 18:52 Hgb 10.3 L (11.8-15.2) gm/dl Hct 30.2 L (35.5-45.6) % PT 15.5 H (12.2-14.9) Sec. INR 1.25 H (0.87-1.13) Heparin Anti-Xa Level (0.3-0.7) U.I./ml Sodium (137-145) mmol/L Carbon Dioxide (22-30) mmol/L BUN (9-20) mg/dL Creatinine (0.8-1.3) mg/dL POC Glucose (70-105) mg/dL Calcium (8.4-10.2) mg/dL C-Reactive Protein 1.50 H (0.00-1.30) mg/dL Urine Creatinine (0.1-20.0) mg/dL Urine Total Protein (5-11.8) mg/dL 06/24/20 06/24/20 06/25/20 Range/Units 21:20 Unknown 03:27 Hgb (11.8-15.2) gm/dl Hct (35.5-45.6) % PT (12.2-14.9) Sec. INR (0.87-1.13) Heparin Anti-Xa Level (0.3-0.7) U.I./ml Sodium 131 L (137-145) mmol/L Carbon Dioxide 17 L (22-30) mmol/L BUN 54 H (9-20) mg/dL Creatinine 6.7 H (0.8-1.3) mg/dL POC Glucose 66 L (70-105) mg/dL Calcium 8.2 L (8.4-10.2) mg/dL C-Reactive Protein (0.00-1.30) mg/dL Urine Creatinine 69.2 H (0.1-20.0) mg/dL Urine Total Protein 33 H (5-11.8) mg/dL 06/25/20 06/25/20 Range/Units 03:27 11:05 Hgb (11.8-15.2) gm/dl Hct (35.5-45.6) % PT (12.2-14.9) Sec. INR (0.87-1.13) Heparin Anti-Xa Level 0.74 H (0.3-0.7) U.I./ml Sodium (137-145) mmol/L Carbon Dioxide (22-30) mmol/L BUN (9-20) mg/dL Creatinine (0.8-1.3) mg/dL POC Glucose 112 H (70-105) mg/dL Calcium (8.4-10.2) mg/dL C-Reactive Protein (0.00-1.30) mg/dL Urine Creatinine (0.1-20.0) mg/dL Urine Total Protein (5-11.8) mg/dL
[2020-06-25] MEDS: HEPARIN/ 0.45% NACL DRIP 25,000 UNIT/500 ML BAG IV SCH (13:52)
--- NOTE | 2020-06-25 14:32 | Progress Note ---
Assessment and Plan # Acute Kidney Injury: unclear cause of MAIK, per patient creatinine around 2 recently. On IVF for pre-renal consideration but minimal improvement. Denies any toxic ingestion with panels mostly WNL. Potential glomerular causes given hematuria, no proteinuria noted. Little to suggest interstitial injury. BP reasonable. Potential injury from IV drug use. - renal ultrasound without acute obstruction, does show echogenic kidneys - toxicology reviewed as available, ordered methanol/isopropyl/ethanol screens - serologies ordered and pending; CK WNL for consideration of rhabdo - switch IVF to NS for better tonicity - strict Is/Os - avoid nephrotoxins - holding home diuretic, SHIRA/ARB - biopsy pending above - no immediate HD indications, will follow based on lab trend, Will check 24 hour creatinine clearance given unclear etiology of MAIK vs CKD progression # HTN: holding home meds given MAIK, use carvedilol or amlodipine if needed for now # Acidosis: likely due to MAIK, no "ingestions" per patient # Illicit Drug Use: noted per primary, did not admit use to myself # Depression: appreciate psych input # DM: agree with holding metformin # Secondary Hyperparathyroidism: P mildly high, PTH reasonable for this kidney function Subjective Date of service: 06/25/20 Principal diagnosis: Rule out cellulitis Interval history: No acute changes per patient, notes good urination, good appetite, no dyspnea or edema Objective - Exam Narrative Exam: Constitutional: no acute distress Head: NC/AT Neck: supple Lungs: clear to auscultation CV: RRR, no M/R/G Abdomen: soft, non-tender, bowel sounds present Back: nontender Extremities: no edema, pulses WNL Skin: intact Neuro: no focal deficits, alert and oriented x4 - Vital Signs Vital signs: Vital Signs - 12hr 06/25/20 06/25/20 06/25/20 03:34 07:52 11:07 Temperature 98.5 F 98.6 F 98.7 F Pulse Rate 65 70 77 Respiratory 16 18 18 Rate Blood Pressure 132/77 149/83 157/90 O2 Sat by Pulse 96 96 96 Oximetry - Lab 06/24/20 18:52 06/25/20 03:27 Most recent lab results Calcium 8.2 mg/dL (8.4-10.2) L 06/25/20 03:27 Phosphorus 4.90 mg/dL (2.5-4.5) H 06/24/20 01:57 Magnesium 1.90 mg/dL (1.7-2.3) 06/24/20 01:57 Urine Creatinine 69.2 mg/dL (0.1-20.0) H 06/24/20 Unknown Urine Sodium 74 mmol/L 06/24/20 06:00 Urine Total Protein 33 mg/dL (5-11.8) H 06/24/20 Unknown Medications & Allergies - Medications Allergies/Adverse Reactions: Allergies No Known Allergies Allergy (Verified 06/24/20 00:07) Active Medications: Generic Name Dose Route Start Last Admin Trade Name Freq PRN Reason Stop Dose Admin Aripiprazole 10 mg 06/24/20 10:00 06/25/20 09:13 Aripiprazole PO 10 mg QDAY LYDIA Administration Fluoxetine HCl 40 mg 06/24/20 10:00 06/25/20 09:13 Prozac PO 40 mg QDAY LYDIA Administration Sodium Bicarbonate 150 meq/ 1,150 mls @ 75 mls/hr 06/24/20 03:00 06/25/20 08:41 Dextrose IV 75 mls/hr DIRECT LYDIA Administration Heparin Sodium/Sodium Chloride 25,000 unit in 500 mls @ 30 mls/hr 06/24/20 17:00 06/25/20 13:52 Heparin/ 0.45% Nacl-25,000 Unit/500 Ml IV 1,350 units/hr TITR LYDIA 27 mls/hr Administration Protocol 1,500 UNITS/HR Insulin Human Lispro 0 unit 06/24/20 07:30 06/25/20 12:05 Humalog SUB-Q Not Given ACHS LYDIA Protocol Labetalol HCl 10 mg 06/24/20 01:41 06/24/20 02:07 Labetalol 20 Mg/4 Ml Inj IV 10 mg Q6HR PRN Administration Hypertension Lactulose 20 gm 06/24/20 00:02 Cephulac PO QHS PRN Constipation Ondansetron HCl 4 mg 06/24/20 00:02 Zofran IV Q4H PRN Nausea And Vomiting Quetiapine Fumarate 50 mg 06/24/20 22:00 06/24/20 21:59 Seroquel PO 50 mg QHS LYDIA Administration Tramadol HCl 25 mg 06/24/20 00:02 Ultram PO Q4H PRN Pain, Moderate (4-6) Trazodone HCl 50 mg 06/24/20 00:02 06/24/20 02:07 Desyrel PO 50 mg QHS PRN Administration Insomnia Warfarin Sodium 7.5 mg 06/24/20 20:00 06/24/20 20:17 Warfarin 7.5 Mg Tab PO 7.5 mg DAILY@1700 LYDIA Administration
[2020-06-25 15:04] LABS: INR 1.24 (0.87-1.13)
--- NOTE | 2020-06-25 16:25 | Progress Note ---
Assessment and Plan --Acute left lower extremity DVT Placed on heparin drip to bridge with Coumadin -- MAIK on CKD Likely due to ATN Continue IV hydration with normal saline Picture Enlarger consulted Renal US order-f/u with result Monitor Kidney function daily Avoid nephrotoxic drug -- Hypertension Monitor blood pressure PRN labetolol Resumed home BP med and adjust BP if needed -- Illicit drug use Patie admits cocain use 05/30, 06/15 Discussed cacain use cessation --Anxiety and depression Patient came from [facility] hospital due to reduced kidney function Resume ant Psychotic meds Psych consulted -- Diabetes type 2 Pt reports hx of diabetes on Metformin Will Hold metformin in the setting of MAIK Picture Enlarger consulted for MAIK Monitor blood sugar with SSI, hypoglycemia protocol Hga1c 5.7 -- Metabolic acidosis likely 2/2 MAIK Continue bicarb gtt at 75 cc/hr Monitor kidney function -- Hyponatremia possible 2/2 to reduced kidney function/dehydration Monitor sodium levels --Morbid obesity with BMI 46.7 Weight reduction counseling with diet and exercise when clinically stable as outpatient -- DVT prophylaxis SQH brief History: This is a 55 year old male with h/o DM, HTN, CKD with a prior creatinine of 2.2 earlier this month currently admitted to [facility] voluntarily for suicidal ideation and drug rehab who presented to [facility] for MAIK. Denies any new medications, alcohol/methanol ingestion, IV drugs, salicylate/NSAID use. BUN/Cr in the Er was 55/7.0, patient placed on IV fluid, consulted nephrology and admitted for further mx. 06/24: Continue to monitor BMP, continue IV fluid. Follow psychiatry and nephrology recommendation. start heparin drip for acute LE DVT 06/25: cont heparin drip. follow BMP/renal function. monitor off abx. Cr 6.7 today Subjective Date of service: 06/25/20 Principal diagnosis: Rule out cellulitis Interval history: Patient seen and examined. Medical records and medication list reviewed. No acute event overnight noted by the RN. Patient denies any chest pain or difficulty breathing. Patient is tolerating diet. Discussed plan of care at bedside with patient. Objective - Exam Narrative Exam: GENERAL: well-developed and morbidly obese -[place] male lying on bed appeared to be in no discomfort. HEENT: Normocephalic. Atraumatic. No conjunctival congestion or icterus. Pat ient has moist mucous membranes. NECK: Supple. Trachea midline. CHEST/LUNGS: Clear to auscultated bilaterally, breathing nonlabored. No wheezes crackles or rhonchi. HEART/CARDIOVASCULAR: Regular in rate and rhythm. S1 and S2 positive. ABDOMEN: Abdomen is soft, nontender. Patient has normal bowel sounds. SKIN: There is no rash. Warm and dry. NEURO: No focal motor deficit. Follows command. MUSCULOSKELETAL: No joint effusion or tenderness. EXTRIMITY: No edema, no cyanosis or clubbing. Left lower extremity calf tenderness PSYCH: Cooperative. - Constitutional Vitals: Vital Signs - 12hr 06/25/20 06/25/20 07:52 11:07 Temperature 98.6 F 98.7 F Pulse Rate 70 77 Respiratory 18 18 Rate Blood Pressure 149/83 157/90 O2 Sat by Pulse 96 96 Oximetry - Labs CBC & Chem 7: 06/28/20 05:40 06/29/20 05:06 Labs: Abnormal lab results 06/24/20 06/24/20 06/24/20 Range/Units 18:52 18:52 18:52 Hgb 10.3 L (11.8-15.2) gm/dl Hct 30.2 L (35.5-45.6) % PT 15.5 H (12.2-14.9) Sec. INR 1.25 H (0.87-1.13) Heparin Anti-Xa Level (0.3-0.7) U.I./ml Sodium (137-145) mmol/L Carbon Dioxide (22-30) mmol/L BUN (9-20) mg/dL Creatinine (0.8-1.3) mg/dL POC Glucose (70-105) mg/dL Calcium (8.4-10.2) mg/dL C-Reactive Protein 1.50 H (0.00-1.30) mg/dL 06/24/20 06/25/20 06/25/20 Range/Units 21:20 03:27 03:27 Hgb (11.8-15.2) gm/dl Hct (35.5-45.6) % PT (12.2-14.9) Sec. INR (0.87-1.13) Heparin Anti-Xa Level 0.74 H (0.3-0.7) U.I./ml Sodium 131 L (137-145) mmol/L Carbon Dioxide 17 L (22-30) mmol/L BUN 54 H (9-20) mg/dL Creatinine 6.7 H (0.8-1.3) mg/dL POC Glucose 66 L (70-105) mg/dL Calcium 8.2 L (8.4-10.2) mg/dL C-Reactive Protein (0.00-1.30) mg/dL 06/25/20 06/25/20 Range/Units 11:05 14:31 Hgb (11.8-15.2) gm/dl Hct (35.5-45.6) % PT 15.4 H (12.2-14.9) Sec. INR 1.24 H (0.87-1.13) Heparin Anti-Xa Level (0.3-0.7) U.I./ml Sodium (137-145) mmol/L Carbon Dioxide (22-30) mmol/L BUN (9-20) mg/dL Creatinine (0.8-1.3) mg/dL POC Glucose 112 H (70-105) mg/dL Calcium (8.4-10.2) mg/dL C-Reactive Protein (0.00-1.30) mg/dL
[2020-06-25] MEDS: WARFARIN 7.5 MG TAB PO SCH (17:01)
[2020-06-25] MEDS: QUEtiapine 25 MG TAB PO SCH (21:40)
[2020-06-26 08:23] LABS: Hematocrit 29.6 % (35.5-45.6); Hemoglobin 10.1 gm/dl (11.8-15.2)
[2020-06-26 08:33] LABS: Calcium 8.6 mg/dL (8.4-10.2)
[2020-06-26 08:35] LABS: INR 1.37 (0.87-1.13)
[2020-06-26] MEDS: HEPARIN/ 0.45% NACL DRIP 25,000 UNIT/500 ML BAG IV SCH ×2 (09:02→18:31)
[2020-06-26] MEDS: INSULIN LISPRO 100 UNIT/ML VIAL 3 mL SUB-Q SCH ×4 (09:09→21:52)
[2020-06-26] MEDS: ARIPiprazole 10 MG TAB PO SCH (09:59)
[2020-06-26] MEDS: FLUoxetine 20 MG CAP PO SCH (09:59)
--- NOTE | 2020-06-26 13:44 | Progress Note ---
Assessment and Plan # Acute Kidney Injury: unclear cause of MAIK, per patient creatinine around 2 recently. On IVF for pre-renal consideration but minimal improvement. Denies any toxic ingestion with panels mostly WNL. Potential glomerular causes given hematuria, no proteinuria noted. Little to suggest interstitial injury. BP reasonable. Potential injury from IV drug use. - renal ultrasound without acute obstruction, does show echogenic kidneys - toxicology reviewed as available, ordered methanol/isopropyl/ethanol screens but no results - serologies ordered and pending; CK WNL for consideration of rhabdo - creatinine improved from 7.0->5.9 with NS, continue IVF as tolerated - strict Is/Os - avoid nephrotoxins - holding home diuretic, SHIRA/ARB - biopsy pending above - no immediate HD indications, will follow based on lab trend, 24 hour creatinine clearance pending given unclear etiology of MAIK vs CKD progression # HTN: holding home meds given MAIK, BP is high, will start amlodipine 10mg # Acidosis: likely due to MAIK, no "ingestions" per patient, improved # Illicit Drug Use: noted per primary, did not admit use to myself # Depression: appreciate psych input # DM: agree with holding metformin # Secondary Hyperparathyroidism: P mildly high, PTH reasonable for this kidney function Subjective Date of service: 06/26/20 Principal diagnosis: Rule out cellulitis Interval history: No acute changes per patient, notes good urination, good appetite, no dyspnea or edema Objective - Exam Narrative Exam: Constitutional: no acute distress Head: NC/AT Neck: supple Lungs: clear to auscultation CV: RRR, no M/R/G Abdomen: soft, non-tender, bowel sounds present Back: nontender Extremities: no edema, pulses WNL Skin: intact Neuro: no focal deficits, alert and oriented x4 - Vital Signs Vital signs: Vital Signs - 12hr 06/26/20 06/26/20 06/26/20 05:00 05:19 08:13 Temperature 98.5 F Pulse Rate 69 68 Pulse Rate [ Apical] Pulse Rate [ Left Radial] Respiratory 16 Rate Blood Pressure 173/94 173/94 152/92 O2 Sat by Pulse 95 Oximetry 06/26/20 06/26/20 10:00 11:48 Temperature 100.3 F H Pulse Rate 69 Pulse Rate [ 68 Apical] Pulse Rate [ 68 Left Radial] Respiratory 18 20 Rate Blood Pressure 162/92 O2 Sat by Pulse 94 95 Oximetry - Lab 06/26/20 07:32 06/26/20 07:32 Most recent lab results Calcium 8.6 mg/dL (8.4-10.2) 06/26/20 07:32 Phosphorus 4.90 mg/dL (2.5-4.5) H 06/24/20 01:57 Magnesium 1.90 mg/dL (1.7-2.3) 06/24/20 01:57 Urine Creatinine 69.2 mg/dL (0.1-20.0) H 06/24/20 Unknown Urine Sodium 74 mmol/L 06/24/20 06:00 Urine Total Protein 33 mg/dL (5-11.8) H 06/24/20 Unknown Medications & Allergies - Medications Allergies/Adverse Reactions: Allergies No Known Allergies Allergy (Verified 06/24/20 00:07) Active Medications: Generic Name Dose Route Start Last Admin Trade Name Freq PRN Reason Stop Dose Admin Aripiprazole 10 mg 06/24/20 10:00 06/26/20 09:59 Aripiprazole PO 10 mg QDAY LYDIA Administration Fluoxetine HCl 40 mg 06/24/20 10:00 06/26/20 09:59 Prozac PO 40 mg QDAY LYDIA Administration Heparin Sodium/Sodium Chloride 25,000 unit in 500 mls @ 30 mls/hr 06/24/20 17:00 06/26/20 09:02 Heparin/ 0.45% Nacl-25,000 Unit/500 Ml IV 1,350 units/hr TITR LYDIA 27 mls/hr Administration Protocol 1,500 UNITS/HR Sodium Chloride 1,000 mls @ 100 mls/hr 06/25/20 14:45 Nacl 0.9% 1000 Ml IV DIRECT LYDIA Insulin Human Lispro 0 unit 06/24/20 07:30 06/26/20 12:16 Humalog SUB-Q Not Given ACHS [facility] Protocol Labetalol HCl 10 mg 06/24/20 01:41 06/26/20 05:19 Labetalol 20 Mg/4 Ml Inj IV 10 mg Q6HR PRN Administration Hypertension Lactulose 20 gm 06/24/20 00:02 Cephulac PO QHS PRN Constipation Ondansetron HCl 4 mg 06/24/20 00:02 Zofran IV Q4H PRN Nausea And Vomiting Quetiapine Fumarate 50 mg 06/24/20 22:00 06/25/20 21:40 Seroquel PO 50 mg QHS LYDIA Administration Tramadol HCl 25 mg 06/24/20 00:02 Ultram PO Q4H PRN Pain, Moderate (4-6) Trazodone HCl 50 mg 06/24/20 00:02 06/24/20 02:07 Desyrel PO 50 mg QHS PRN Administration Insomnia Warfarin Sodium 7.5 mg 06/24/20 20:00 06/25/20 17:01 Warfarin 7.5 Mg Tab PO 7.5 mg DAILY@1700 LYDIA Administration
--- NOTE | 2020-06-26 16:18 | Progress Note ---
Assessment and Plan --Acute left lower extremity DVT Placed on heparin drip to bridge with Coumadin -- MAIK on CKD Likely due to ATN Continue IV hydration with normal saline Precipitator Operator consulted Renal US order-f/u with result Monitor Kidney function daily Avoid nephrotoxic drug -- Hypertension Monitor blood pressure PRN labetolol Resumed home BP med and adjust BP if needed -- Illicit drug use Patie admits cocain use 05/30, 06/15 Discussed cacain use cessation --Anxiety and depression Patient came from [facility] hospital due to reduced kidney function Resume ant Psychotic meds Psych consulted -- Diabetes type 2 Pt reports hx of diabetes on Metformin Will Hold metformin in the setting of MAIK Precipitator Operator consulted for MAIK Monitor blood sugar with SSI, hypoglycemia protocol Hga1c 5.7 -- Metabolic acidosis likely 2/2 MAIK Continue bicarb gtt at 75 cc/hr Monitor kidney function -- Hyponatremia possible 2/2 to reduced kidney function/dehydration Monitor sodium levels --Morbid obesity with BMI 46.7 Weight reduction counseling with diet and exercise when clinically stable as outpatient -- DVT prophylaxis SQH brief History: This is a 55 year old male with h/o DM, HTN, CKD with a prior creatinine of 2.2 earlier this month currently admitted to [place] [facility] facility voluntarily for suicidal ideation and drug rehab who presented to [facility] for MAIK. Denies any new medications, alcohol/methanol ingestion, IV drugs, salicylate/NSAID use. BUN/Cr in the Er was 55/7.0, patient placed on IV fluid, consulted nephrology and admitted for further mx. 06/24: Continue to monitor BMP, continue IV fluid. Follow psychiatry and nephrology recommendation. start heparin drip for acute LE DVT 06/25: cont heparin drip. follow BMP/renal function. monitor off abx. Cr 6.7 today 06/26: Cr 5.9 -slightly improved today, cont to follow BMP Subjective Date of service: 06/26/20 Principal diagnosis: Rule out cellulitis Interval history: Patient seen and examined. Medical records and medication list reviewed. No acute event overnight noted by the RN. Patient denies any chest pain or difficulty breathing. Patient is tolerating diet. Discussed plan of care at bedside with patient. Objective - Exam Narrative Exam: GENERAL: well-developed and morbidly obese -[place] male lying on bed appeared to be in no discomfort. HEENT: Normocephalic. Atraumatic. No conjunctival congestion or icterus. Patient has moist mucous membranes. NECK: Supple. Trachea midline. CHEST/LUNGS: Clear to auscultated bilaterally, breathing nonlabored. No wheezes crackles or rhonchi. HEART/CARDIOVASCULAR: Regular in rate and rhythm. S1 and S2 positive. ABDOMEN: Abdomen is soft, nontender. Patient has normal bowel sounds. SKIN: There is no rash. Warm and dry. NEURO: No focal motor deficit. Follows command. MUSCULOSKELETAL: No joint effusion or tenderness. EXTRIMITY: No edema, no cyanosis or clubbing. PSYCH: Cooperative. - Constitutional Vitals: Vital Signs - 12hr 06/26/20 06/26/20 06/26/20 05:00 05:19 08:13 Temperature 98.5 F Pulse Rate 69 68 Pulse Rate [ Apical] Pulse Rate [ Left Radial] Respiratory 16 Rate Blood Pressure 173/94 173/94 152/92 O2 Sat by Pulse 95 Oximetry 06/26/20 06/26/20 10:00 11:48 Temperature 100.3 F H Pulse Rate 69 Pulse Rate [ 68 Apical] Pulse Rate [ 68 Left Radial] Respiratory 18 20 Rate Blood Pressure 162/92 O2 Sat by Pulse 94 95 Oximetry - Labs CBC & Chem 7: 06/28/20 05:40 06/29/20 05:06 Labs: Abnormal lab results 06/25/20 06/26/20 06/26/20 Range/Units 21:55 07:32 07:32 Hgb 10.1 L (11.8-15.2) gm/dl Hct 29.6 L (35.5-45.6) % PT 16.7 H (12.2-14.9) Sec. INR 1.37 H (0.87-1.13) Sodium (137-145) mmol/L BUN (9-20) mg/dL Creatinine (0.8-1.3) mg/dL POC Glucose 123 H (70-105) mg/dL 06/26/20 06/26/20 Range/Units 07:32 11:51 Hgb (11.8-15.2) gm/dl Hct (35.5-45.6) % PT (12.2-14.9) Sec. INR (0.87-1.13) Sodium 135 L (137-145) mmol/L BUN 51 H (9-20) mg/dL Creatinine 5.9 H (0.8-1.3) mg/dL POC Glucose 114 H (70-105) mg/dL
[2020-06-26] MEDS: WARFARIN 7.5 MG TAB PO SCH (17:54)
[2020-06-26] MEDS: QUEtiapine 25 MG TAB PO SCH (21:55)
[2020-06-27] MEDS: HEPARIN/ 0.45% NACL DRIP 25,000 UNIT/500 ML BAG IV SCH ×2 (03:49→21:40)
[2020-06-27 06:49] LABS: INR 1.49 (0.87-1.13)
[2020-06-27] MEDS: INSULIN LISPRO 100 UNIT/ML VIAL 3 mL SUB-Q SCH ×4 (08:12→21:41)
[2020-06-27] MEDS: amLODIPine 10 MG TAB PO SCH (09:53)
[2020-06-27] MEDS: ARIPiprazole 10 MG TAB PO SCH (09:53)
[2020-06-27] MEDS: FLUoxetine 20 MG CAP PO SCH (09:54)
[2020-06-27 11:42] LABS: Myeloperoxidase Antibody <1.0 AI (<1.0)
--- NOTE | 2020-06-27 15:15 | Progress Note ---
Assessment and Plan --Acute left lower extremity DVT Placed on heparin drip to bridge with Coumadin -- MAIK on CKD Likely due to ATN Continue IV hydration with normal saline Fiberglass Boat Assembly Supervisor consulted Renal US order-f/u with result Monitor Kidney function daily Avoid nephrotoxic drug -- Hypertension Monitor blood pressure PRN labetolol Resumed home BP med and adjust BP if needed -- Illicit drug use Patie admits cocain use 05/30, 06/15 Discussed cacain use cessation --Anxiety and depression Patient came from [facility] hospital due to reduced kidney function Resume ant Psychotic meds Psych consulted -- Diabetes type 2 Pt reports hx of diabetes on Metformin Will Hold metformin in the setting of MAIK Fiberglass Boat Assembly Supervisor consulted for MAIK Monitor blood sugar with SSI, hypoglycemia protocol Hga1c 5.7 -- Metabolic acidosis, improved likely 2/2 MAIK s/p bicarb gtt Monitor kidney function -- Hyponatremia possible 2/2 to reduced kidney function/dehydration Monitor sodium levels --Morbid obesity with BMI 46.7 Weight reduction counseling with diet and exercise when clinically stable as outpatient -- DVT prophylaxis SQH brief History: This is a 55 year old male with h/o DM, HTN, CKD with a prior creatinine of 2.2 earlier this month currently admitted to [facility] [place] [facility] for suicidal ideation and drug rehab who presented to [facility] for MAIK. Denies any new medications, alcohol/methanol ingestion, IV drugs, salicylate/NSAID use. BUN/Cr in the Er was 55/7.0, patient placed on IV fluid, consulted nephrology and admitted for further mx. 06/24: Continue to monitor BMP, continue IV fluid. Follow psychiatry and nephrology recommendation. start heparin drip for acute LE DVT 06/25: cont heparin drip. follow BMP/renal function. monitor off abx. Cr 6.7 today 06/26: Cr 5.9 -slightly improved today, cont to follow BMP 06/27: BMP pending, cont iv fluid, follow renal function, continue normal saline IV fluid Subjective Date of service: 06/27/20 Principal diagnosis: Rule out cellulitis Interval history: Patient seen and examined. Medical records and medication list reviewed. No acute event overnight noted by the RN. Patient denies any chest pain or difficulty breathing. Patient is tolerating diet. Discussed plan of care at bedside with patient. Objective - Exam Narrative Exam: GENERAL: well-developed and morbidly obese -[place] male lying on bed appeared to be in no discomfort. HEENT: Normocephalic. Atraumatic. No conjunctival congestion or icterus. Patient has moist mucous membranes. NECK: Supple. Trachea midline. CHEST/LUNGS: Clear to auscultated bilaterally, breathing nonlabored. No wheezes crackles or rhonchi. HEART/CARDIOVASCULAR: Regular in rate and rhythm. S1 and S2 positive. ABDOMEN: Abdomen is soft, nontender. Patient has normal bowel sounds. SKIN: There is no rash. Warm and dry. NEURO: No focal motor deficit. Follows command. MUSCULOSKELETAL: No joint effusion or tenderness. EXTRIMITY: No edema, no cyanosis or clubbing. PSYCH: Cooperative. - Constitutional Vitals: Vital Signs - 12hr 06/27/20 06/27/20 06/27/20 04:21 07:41 09:53 Temperature 98.3 F 98.0 F Pulse Rate 68 67 67 Pulse Rate [ Apical] Pulse Rate [ Left Radial] Respiratory 18 18 Rate Blood Pressure 149/88 159/84 159/84 O2 Sat by Pulse 94 95 Oximetry 06/27/20 06/27/20 10:00 11:24 Temperature 98.3 F Pulse Rate 58 L 74 Pulse Rate [ 68 Apical] Pulse Rate [ 68 Left Radial] Respiratory 18 18 Rate Blood Pressure 153/86 O2 Sat by Pulse 98 95 Oximetry - Labs CBC & Chem 7: 06/28/20 05:40 06/29/20 05:06 Labs: Abnormal lab results 06/26/20 06/26/20 06/27/20 Range/Units 16:33 17:12 06:09 PT 17.9 H (12.2-14.9) Sec. INR 1.49 H (0.87-1.13) POC Glucose 46 L 188 H (70-105) mg/dL 06/27/20 Range/Units 11:22 PT (12.2-14.9) Sec. INR (0.87-1.13) POC Glucose 124 H (70-105) mg/dL
[2020-06-27 16:27] LABS: Calcium 8.8 mg/dL (8.4-10.2)
[2020-06-27] MEDS: WARFARIN 7.5 MG TAB PO SCH (17:22)
[2020-06-27] MEDS: QUEtiapine 25 MG TAB PO SCH (21:41)
[2020-06-27 23:18] LABS: Abnormal Protein Band 1 5.9 g/dL; Albumin 2.8 g/dL (3.8-4.8)
[2020-06-28 06:16] LABS: Hematocrit 29.1 % (35.5-45.6)
[2020-06-28 06:24] LABS: INR 2.01 (0.87-1.13)
[2020-06-28 06:35] LABS: Calcium 8.8 mg/dL (8.4-10.2)
[2020-06-28] MEDS: INSULIN LISPRO 100 UNIT/ML VIAL 3 mL SUB-Q SCH ×4 (08:42→22:49)
[2020-06-28] MEDS: ARIPiprazole 10 MG TAB PO SCH (09:17)
[2020-06-28] MEDS: FLUoxetine 20 MG CAP PO SCH (09:18)
[2020-06-28] MEDS: amLODIPine 10 MG TAB PO SCH (09:18)
[2020-06-28] MEDS: SODIUM CHLORIDE 0.9% 1000 ML 1,000 ML IV SCH ×2 (13:48→22:58)
--- NOTE | 2020-06-28 15:56 | Progress Note ---
Assessment and Plan --Acute left lower extremity DVT Placed on heparin drip to bridge with Coumadin INR therapeutic today, will stop heparin drip -- MAIK on CKD Likely due to ATN Continue IV hydration with normal saline Tag Clerk consulted Renal US order-f/u with result Monitor Kidney function daily Avoid nephrotoxic drug -- Hypertension Monitor blood pressure PRN labetolol Resumed home BP med and adjust BP if needed -- Illicit drug use Patie admits cocain use 05/30, 06/15 Discussed cacain use cessation --Anxiety and depression Patient came from [facility] due to reduced kidney function Resume ant Psychotic meds Psych consulted -- Diabetes type 2 Pt reports hx of diabetes on Metformin Will Hold metformin in the setting of MAIK Tag Clerk consulted for MAIK Monitor blood sugar with SSI, hypoglycemia protocol Hga1c 5.7 -- Metabolic acidosis, improved likely 2/2 MAIK s/p bicarb gtt Monitor kidney function -- Hyponatremia possible 2/2 to reduced kidney function/dehydration Monitor sodium levels --Morbid obesity with BMI 46.7 Weight reduction counseling with diet and exercise when clinically stable as outpatient --Anemia of chronic disease, continue to monitor H&H -- DVT prophylaxis SQH brief History: This is a 55 year old male with h/o DM, HTN, CKD with a prior creatinine of 2.2 earlier this month currently admitted to [place] [facility] facility voluntarily for suicidal ideation and drug rehab who presented to [facility] for MAIK. Denies any new medications, alcohol/methanol ingestion, IV drugs, salicylate/NSAID use. BUN/Cr in the Er was 55/7.0, patient placed on IV fluid, consulted nephrology and admitted for further mx. 06/24: Continue to monitor BMP, continue IV fluid. Follow psychiatry and nephrology recommendation. start heparin drip for acute LE DVT 06/25: cont heparin drip. follow BMP/renal function. monitor off abx. Cr 6.7 today 06/26: Cr 5.9 -slightly improved today, cont to follow BMP 06/27: BMP pending, cont iv fluid, follow renal function, continue normal saline IV fluid 06/28: Cr 4.7 -improving. INR therapeutic, stop heparin drip today. Subjective Date of service: 06/28/20 Principal diagnosis: Rule out cellulitis Interval history: Patient seen and examined. Medical records and medication list reviewed. No acute event overnight noted by the RN. Patient denies any chest pain or difficulty breathing. Patient is tolerating diet. Discussed plan of care at bedside with patient. Objective - Exam Narrative Exam: GENERAL: well-developed and morbidly obese -[place] male lying on bed a ppeared to be in no discomfort. HEENT: Normocephalic. Atraumatic. No conjunctival congestion or icterus. Patient has moist mucous membranes. NECK: Supple. Trachea midline. CHEST/LUNGS: Clear to auscultated bilaterally, breathing nonlabored. No wheezes crackles or rhonchi. HEART/CARDIOVASCULAR: Regular in rate and rhythm. S1 and S2 positive. ABDOMEN: Abdomen is soft, nontender. Patient has normal bowel sounds. SKIN: There is no rash. Warm and dry. NEURO: No focal motor deficit. Follows command. MUSCULOSKELETAL: No joint effusion or tenderness. EXTRIMITY: No edema, no cyanosis or clubbing. PSYCH: Cooperative. - Constitutional Vitals: Vital Signs - 12hr 06/28/20 06/28/20 06/28/20 08:14 09:18 10:00 Temperature 98.1 F Pulse Rate 69 76 70 Pulse Rate [ 72 Apical] Pulse Rate [ 72 Left Radial] Respiratory 18 20 Rate Blood Pressure 136/67 133/76 O2 Sat by Pulse 96 99 Oximetry 06/28/20 11:30 Temperature 98.0 F Pulse Rate 78 Pulse Rate [ Apical] Pulse Rate [ Left Radial] Respiratory 18 Rate Blood Pressure 143/77 O2 Sat by Pulse 96 Oximetry - Labs CBC & Chem 7: 06/28/20 05:40 06/29/20 05:06 Labs: Abnormal lab results 06/24/20 06/27/20 06/27/20 Range/Units 10:21 15:49 21:41 Hgb (11.8-15.2) gm/dl Hct (35.5-45.6) % PT (12.2-14.9) Sec. INR (0.87-1.13) Sodium 130 L (137-145) mmol/L Carbon Dioxide 20 L (22-30) mmol/L BUN 48 H (9-20) mg/dL Creatinine 5.1 H (0.8-1.3) mg/dL POC Glucose 168 H (70-105) mg/dL Serum Total Protein 10.6 H (6.1-8.1) g/dL Albumin 2.8 L (3.8-4.8) g/dL Gamma Globulins 6.0 H (0.8-1.7) g/dL Abnorm Protein Band 1 5.9 H g/dL PEP Interpretation see below H 06/28/20 06/28/20 06/28/20 Range/Units 05:40 05:40 05:40 Hgb 10.0 L (11.8-15.2) gm/dl Hct 29.1 L (35.5-45.6) % PT 22.9 H (12.2-14.9) Sec. INR 2.01 H (0.87-1.13) Sodium 134 L (137-145) mmol/L Carbon Dioxide 19 L (22-30) mmol/L BUN 50 H (9-20) mg/dL Creatinine 4.7 H (0.8-1.3) mg/dL POC Glucose (70-105) mg/dL Serum Total Protein (6.1-8.1) g/dL Albumin (3.8-4.8) g/dL Gamma Globulins (0.8-1.7) g/dL Abnorm Protein Band 1 g/dL PEP Interpretation
[2020-06-28] MEDS: WARFARIN 2 MG TAB PO SCH (17:31)
--- NOTE | 2020-06-28 18:38 | Progress Note ---
Assessment and Plan # Acute Kidney Injury: unclear cause of MAIK, per patient creatinine around 2 recently. Denies any toxic ingestion with panels mostly WNL. Potential glomerular causes given hematuria, no proteinuria noted. Little to suggest interstitial injury. BP reasonable. Potential injury from IV drug use. - renal ultrasound without acute obstruction, does show echogenic kidneys - toxicology reviewed as available, ordered methanol/isopropyl/ethanol screens but no results - serologies ordered and pending; CK WNL for consideration of rhabdo - creatinine improving with NS, continue IVF as tolerated - strict Is/Os - avoid nephrotoxins - holding home diuretic, SHIRA/ARB - no immediate HD indications, will follow based on lab trend, 24 hour crea tinine clearance pending - repeat urinalysis # HTN: Continue amlodipine 10mg # Acidosis: likely due to MAIK, no "ingestions" per patient. Start sodium bicarb tabs. # Illicit Drug Use: noted per primary, did not admit use to myself # Depression: appreciate psych input # DM: agree with holding metformin # Secondary Hyperparathyroidism: P mildly high, PTH reasonable for this kidney function Subjective Date of service: 06/28/20 Principal diagnosis: Rule out cellulitis Interval history: No acute events overnight Urine output 400 cc documented Objective - Exam Narrative Exam: Constitutional: No acute distress Head: Normocephalic/atraumatic Neck: Supple Lungs: Clear to auscultation bilaterally Cardiovascular: RRR, no M/R/G Abdomen: Soft, nontender, NABS Back, nontender Extremities: No edema, pulses within normal limits Skin: Intact, no rash Neuro: Alert and oriented 3, no focal deficits - Vital Signs Vital signs: Vital Signs - 12hr 06/28/20 06/28/20 06/28/20 08:14 09:18 10:00 Temperature 98.1 F Pulse Rate 69 76 70 Pulse Rate [ 72 Apical] Pulse Rate [ 72 Left Radial] Respiratory 18 20 Rate Blood Pressure 136/67 133/76 O2 Sat by Pulse 96 99 Oximetry 06/28/20 06/28/20 11:30 16:34 Temperature 98.0 F 98.1 F Pulse Rate 78 79 Pulse Rate [ Apical] Pulse Rate [ Left Radial] Respiratory 18 18 Rate Blood Pressure 143/77 163/91 O2 Sat by Pulse 96 94 Oximetry - Lab 06/28/20 05:40 06/28/20 05:40 Most recent lab results Calcium 8.8 mg/dL (8.4-10.2) 06/28/20 05:40 Phosphorus 4.90 mg/dL (2.5-4.5) H 06/24/20 01:57 Magnesium 1.90 mg/dL (1.7-2.3) 06/24/20 01:57 Urine Creatinine 69.2 mg/dL (0.1-20.0) H 06/24/20 Unknown Urine Sodium 74 mmol/L 06/24/20 06:00 Urine Total Protein 33 mg/dL (5-11.8) H 06/24/20 Unknown Medications & Allergies - Medications Allergies/Adverse Reactions: Allergies No Known Allergies Allergy (Verified 06/24/20 00:07) Active Medications: Generic Name Dose Route Start Last Admin Trade Name Freq PRN Reason Stop Dose Admin Amlodipine Besylate 10 mg 06/27/20 10:00 06/28/20 09:18 Amlodipine 10 Mg Tab PO 10 mg QDAY LYDIA Administration Aripiprazole 10 mg 06/24/20 10:00 06/28/20 09:17 Aripiprazole PO 10 mg QDAY LYDIA Administration Fluoxetine HCl 40 mg 06/24/20 10:00 06/28/20 09:18 Prozac PO 40 mg QDAY LYDIA Administration Sodium Chloride 1,000 mls @ 100 mls/hr 06/25/20 14:45 06/28/20 13:48 Nacl 0.9% 1000 Ml IV 100 mls/hr DIRECT LYDIA Administration Insulin Human Lispro 0 unit 06/24/20 07:30 06/28/20 16:42 Humalog SUB-Q Not Given ACHS [facility] Protocol Labetalol HCl 10 mg 06/24/20 01:41 06/26/20 05:19 Labetalol 20 Mg/4 Ml Inj IV 10 mg Q6HR PRN Administration Hypertension Lactulose 20 gm 06/24/20 00:02 Cephulac PO QHS PRN Constipation Ondansetron HCl 4 mg 06/24/20 00:02 Zofran IV Q4H PRN Nausea And Vomiting Quetiapine Fumarate 50 mg 06/24/20 22:00 06/27/20 21:41 Seroquel PO 50 mg QHS LYDIA Administration Tramadol HCl 25 mg 06/24/20 00:02 Ultram PO Q4H PRN Pain, Moderate (4-6) Trazodone HCl 50 mg 06/24/20 00:02 06/24/20 02:07 Desyrel PO 50 mg QHS PRN Administration Insomnia Warfarin Sodium 6 mg 06/28/20 17:00 06/28/20 17:31 Warfarin 2 Mg Tab PO 6 mg DAILY@1700 LYDIA Administration
[2020-06-28] MEDS: SODIUM BICARBONATE 650 MG TAB PO SCH (22:48)
[2020-06-28] MEDS: QUEtiapine 25 MG TAB PO SCH (22:48)
[2020-06-29 06:03] LABS: INR 1.96 (0.87-1.13)
[2020-06-29 06:11] LABS: Calcium 8.5 mg/dL (8.4-10.2)
[2020-06-29] MEDS: INSULIN LISPRO 100 UNIT/ML VIAL 3 mL SUB-Q SCH ×4 (07:55→23:15)
[2020-06-29] MEDS: SODIUM BICARBONATE 650 MG TAB PO SCH ×3 (08:24→16:51)
[2020-06-29] MEDS: amLODIPine 10 MG TAB PO SCH (11:25)
[2020-06-29] MEDS: ARIPiprazole 10 MG TAB PO SCH (11:25)
[2020-06-29] MEDS: FLUoxetine 20 MG CAP PO SCH (11:25)
--- NOTE | 2020-06-29 14:23 | Progress Note ---
Assessment and Plan --Acute left lower extremity DVT Placed on heparin drip to bridge with Coumadin INR therapeutic today, will stop heparin drip -- MAIK on CKD Likely due to ATN Continue IV hydration with normal saline Director Of Coding consulted Renal US order-f/u with result Monitor Kidney function daily Avoid nephrotoxic drug -- Hypertension Monitor blood pressure PRN labetolol Resumed home BP med and adjust BP if needed -- Illicit drug use Patie admits cocain use 05/30, 06/15 Discussed cacain use cessation --Anxiety and depression Patient came from [facility] hospital due to reduced kidney function Resume ant Psychotic meds Psych consulted -- Diabetes type 2 Pt reports hx of diabetes on Metformin Will Hold metformin in the setting of MAIK Director Of Coding consulted for MAIK Monitor blood sugar with SSI, hypoglycemia protocol Hga1c 5.7 -- Metabolic acidosis, improved likely 2/2 MAIK s/p bicarb gtt Monitor kidney function -- Hyponatremia possible 2/2 to reduced kidney function/dehydration Monitor sodium levels --Morbid obesity with BMI 46.7 Weight reduction counseling with diet and exercise when clinically stable as outpatient --Anemia of chronic disease, continue to monitor H&H -- DVT prophylaxis SQH brief History: This is a 55 year old male with h/o DM, HTN, CKD with a prior creatinine of 2.2 earlier this month currently admitted to [facility] voluntarily for suicidal ideation and drug rehab who presented to [facility] for MAIK. Denies any new medications, alcohol/methanol ingestion, IV drugs, salicylate/NSAID use. BUN/Cr in the Er was 55/7.0, patient placed on IV fluid, consulted nephrology and admitted for further mx. 06/24: Continue to monitor BMP, continue IV fluid. Follow psychiatry and nephrology recommendation. start heparin drip for acute LE DVT 06/25: cont heparin drip. follow BMP/renal function. monitor off abx. Cr 6.7 today 06/26: Cr 5.9 -slightly improved today, cont to follow BMP 06/27: BMP pending, cont iv fluid, follow renal function, continue normal saline IV fluid 06/28: Cr 4.7 -improving. INR therapeutic, stop heparin drip today. 06/29: Follow BMP, creatinine 4.0 today. 24 hour creatinine clearance pending. DC planning as per nephrology Subjective Date of service: 06/29/20 Principal diagnosis: Rule out cellulitis Interval history: Patient seen and examined. Medical records and medication list reviewed. No acute event overnight noted by the RN. Patient denies any chest pain or difficulty breathing. Patient is tolerating diet. Discussed plan of care at bedside with patient. Objective - Exam Narrative Exam: GENERAL: well-developed and morbidly obese -[place] male lying on bed appeared to be in no discomfort. HEENT: Normocephalic. Atraumatic. No conjunctival congestion or icterus. Patient has moist mucous membranes. NECK: Supple. Trachea midline. CHEST/LUNGS: Clear to auscultated bilaterally, breathing nonlabored. No wheezes crackles or rhonchi. HEART/CARDIOVASCULAR: Regular in rate and rhythm. S1 and S2 positive. ABDOMEN: Abdomen is soft, nontender. Patient has normal bowel sounds. SKIN: There is no rash. Warm and dry. NEURO: No focal motor deficit. Follows command. MUSCULOSKELETAL: No joint effusion or tenderness. EXTRIMITY: No edema, no cyanosis or clubbing. PSYCH: Cooperative. - Constitutional Vitals: Vital Signs - 12hr 06/29/20 06/29/20 06/29/20 04:08 07:33 07:52 Temperature 98.1 F 98.1 F Pulse Rate 79 65 79 Respiratory 20 18 Rate Blood Pressure 144/82 124/62 O2 Sat by Pulse 95 94 Oximetry 06/29/20 11:32 Temperature 98.0 F Pulse Rate 67 Respiratory 18 Rate Blood Pressure 161/90 O2 Sat by Pulse 98 Oximetry - Labs CBC & Chem 7: 06/30/20 05:34 06/30/20 11:10 Labs: Abnormal lab results 06/24/20 06/28/20 06/28/20 Range/Units 10:21 21:11 22:35 PT (12.2-14.9) Sec. INR (0.87-1.13) Heparin Anti-Xa Level < 0.10 L (0.3-0.7) U.I./ml Sodium (137-145) mmol/L BUN (9-20) mg/dL Creatinine (0.8-1.3) mg/dL Glucose (75-100) mg/dL POC Glucose 66 L (70-105) mg/dL Complement C4 5 L (15-53) mg/dL 12/14/20 12/15/20 12/15/20 Range/Units 22:53 05:06 05:06 PT 22.4 H (12.2-14.9) Sec. INR 1.96 H (0.87-1.13) Heparin Anti-Xa Level (0.3-0.7) U.I./ml Sodium 134 L (137-145) mmol/L BUN 42 H (9-20) mg/dL Creatinine 4.0 H (0.8-1.3) mg/dL Glucose 114 H (75-100) mg/dL POC Glucose 122 H (70-105) mg/dL Complement C4 (15-53) mg/dL
--- NOTE | 2020-06-29 16:34 | Progress Note ---
Assessment and Plan # Acute Kidney Injury: unclear cause of MAIK, per patient creatinine around 2 recently. Denies any toxic ingestion with panels mostly WNL. Potential glomerular causes given hematuria, no proteinuria noted. Little to suggest interstitial injury. BP reasonable. Potential injury from IV drug use. - renal ultrasound without acute obstruction, does show echogenic kidneys - toxicology reviewed as available, ordered methanol/isopropyl/ethanol screens but no results - serologies ordered and pending; CK WNL for consideration of rhabdo - creatinine improving with NS, continue IVF - strict Is/Os - avoid nephrotoxins - holding home diuretic, SHIRA/ARB - no immediate HD indications, will follow based on lab trend, 24 hour creatinine clearance pending - repeat urinalysis # Hypovolemic hyponatremia: Improving with IV saline # HTN: Continue amlodipine 10mg # Acidosis: likely due to MAIK, no "ingestions" per patient. Continue sodium bic arb tabs. # Illicit Drug Use: noted per primary # Depression: appreciate psych input # DM: agree with holding metformin # Secondary Hyperparathyroidism: P mildly high, PTH reasonable for this kidney function Subjective Date of service: 06/29/20 Principal diagnosis: Rule out cellulitis Interval history: Patient was seen for his renal issues Nursing, interdisciplinary and consult notes were reviewed Vitals, input and output, medications and labs were reviewed UOP not documented Objective - Exam Narrative Exam: Constitutional: No acute distress Head: Normocephalic/atraumatic Neck: Supple Lungs: Clear to auscultation bilaterally Cardiovascular: RRR, no M/R/G Abdomen: Soft, nontender, NABS Back, nontender Extremities: No edema, pulses within normal limits Skin: Intact, no rash Neuro: Alert and oriented 3, no focal deficits - Vital Signs Vital signs: Vital Signs - 12hr 06/29/20 06/29/20 06/29/20 07:33 07:52 11:32 Temperature 98.1 F 98.0 F Pulse Rate 65 79 67 Respiratory 18 18 Rate Blood Pressure 124/62 161/90 O2 Sat by Pulse 94 98 Oximetry 06/29/20 15:38 Temperature 98.1 F Pulse Rate 69 Respiratory 18 Rate Blood Pressure 164/91 O2 Sat by Pulse 97 Oximetry - Lab 06/28/20 05:40 06/29/20 05:06 Most recent lab results Calcium 8.5 mg/dL (8.4-10.2) 06/29/20 05:06 Phosphorus 4.90 mg/dL (2.5-4.5) H 06/24/20 01:57 Magnesium 1.90 mg/dL (1.7-2.3) 06/24/20 01:57 Urine Creatinine 69.2 mg/dL (0.1-20.0) H 06/24/20 Unknown Urine Sodium 74 mmol/L 06/24/20 06:00 Urine Total Protein 33 mg/dL (5-11.8) H 06/24/20 Unknown Medications & Allergies - Medications Allergies/Adverse Reactions: Allergies No Known Allergies Allergy (Verified 06/24/20 00:07) Active Medications: Generic Name Dose Route Start Last Admin Trade Name Freq PRN Reason Stop Dose Admin Amlodipine Besylate 10 mg 06/27/20 10:00 06/29/20 11:25 Amlodipine 10 Mg Tab PO 10 mg QDAY LYDIA Administration Aripiprazole 10 mg 06/24/20 10:00 06/29/20 11:25 Aripiprazole PO 10 mg QDAY LYDIA Administration Fluoxetine HCl 40 mg 06/24/20 10:00 06/29/20 11:25 Prozac PO 40 mg QDAY LYDIA Administration Sodium Chloride 1,000 mls @ 100 mls/hr 06/25/20 14:45 06/28/20 22:58 Nacl 0.9% 1000 Ml IV 100 mls/hr DIRECT LYDIA Administration Insulin Human Lispro 0 unit 06/24/20 07:30 06/29/20 14:41 Humalog SUB-Q Not Given ACHS [facility] Protocol Labetalol HCl 10 mg 06/24/20 01:41 06/26/20 05:19 Labetalol 20 Mg/4 Ml Inj IV 10 mg Q6HR PRN Administration Hypertension Lactulose 20 gm 06/24/20 00:02 Cephulac PO QHS PRN Constipation Ondansetron HCl 4 mg 06/24/20 00:02 Zofran IV Q4H PRN Nausea And Vomiting Quetiapine Fumarate 50 mg 06/24/20 22:00 06/28/20 22:48 Seroquel PO 50 mg QHS LYDIA Administration Sodium Bicarbonate 1,300 mg 06/28/20 20:00 06/29/20 11:25 Sodium Bicarbonate 650 Mg Tab PO 1,300 mg TIDWM LYDIA Administration Tramadol HCl 25 mg 06/24/20 00:02 Ultram PO Q4H PRN Pain, Moderate (4-6) Trazodone HCl 50 mg 06/24/20 00:02 06/24/20 02:07 Desyrel PO 50 mg QHS PRN Administration Insomnia Warfarin Sodium 6 mg 06/28/20 17:00 06/28/20 17:31 Warfarin 2 Mg Tab PO 6 mg DAILY@1700 LYDIA Administration
[2020-06-29] MEDS: WARFARIN 2 MG TAB PO SCH (16:51)
[2020-06-29] MEDS ORDERED: diphenhydrAMINE 25 MG CAP PO PRN (16:56)
[2020-06-29] MEDS: SODIUM CHLORIDE 0.9% 1000 ML 1,000 ML IV SCH (21:32)
[2020-06-29] MEDS: QUEtiapine 25 MG TAB PO SCH (21:33)
[2020-06-29 22:42] LABS: ANA Screen, IFA Negative (Negative)
[2020-06-30 06:28] LABS: Hematocrit 28.9 % (35.5-45.6); Hemoglobin 9.8 gm/dl (11.8-15.2)
[2020-06-30] MEDS: SODIUM CHLORIDE 0.9% 1000 ML 1,000 ML IV SCH (06:29)
[2020-06-30 06:38] LABS: INR 2.33 (0.87-1.13)
[2020-06-30 11:48] LABS: Calcium 8.4 mg/dL (8.4-10.2)
[2020-06-30] MEDS ORDERED: WARFARIN 2 MG TAB PO SCH (13:56)
--- NOTE | 2020-06-30 14:47 | Discharge Summary ---
Providers - Providers Date of Admission: 06/23/20 23:25 Date of discharge: 06/30/20 Attending physician: ART JAMES 06/23/20 23:53 Consult to Physician [CONS] Urgent Comment: Consulting Provider: AMINA MILLAN Physician Instructions: Reason For Exam: MAIK 06/24/20 03:15 Consult to Mental Health [CONS] Routine Reason For Exam: bipolar disorder Consult to Physician [CONS] Routine Comment: Consulting Provider: CARLO MILNER Physician Instructions: Reason For Exam: cellulitis 06/30/20 13:54 Consult to Mental Health [CONS] Routine Reason For Exam: discharge clearance Primary care physician: PERSONNEL SCHEDULER Hospitalization Condition: Stable Hospital course: This is a 55 year old male with h/o DM, HTN, CKD with a prior creatinine of 2.2 earlier this month currently admitted to [place] [facility] facility voluntarily for suicidal ideation and drug rehab who presented to [facility] for MAIK. Denies any new medications, alcohol/methanol ingestion, IV drugs, salicylate/NSAID use. BUN/Cr in the Er was 55/7.0, patient placed on IV fluid, consulted nephrology and admitted for further mx. Daily course; 06/24: Continue to monitor BMP, continue IV fluid. Follow psychiatry and nephrology recommendation. start heparin drip for acute LE DVT 06/25: cont heparin drip. follow BMP/renal function. monitor off abx. Cr 6.7 today 06/26: Cr 5.9 -slightly improved today, cont to follow BMP 06/27: BMP pending, cont iv fluid, follow renal function, continue normal saline IV fluid 06/28: Cr 4.7 -improving. INR therapeutic, stop heparin drip today. 06/29: Follow BMP, creatinine 4.0 today. 24 hour creatinine clearance pending. DC planning as per nephrology 06/30: Creatinine 3.1 today, INR therapeutic. Nephrology recommended no need for 24-hour urine collection. Patient will be discharged today. Needs a repeat BMP in 1 week. Also need to monitor INR. Discharge diagnosis: --Acute left lower extremity DVT Placed on heparin drip to bridge with Coumadin INR therapeutic now, off heparin -- MAIK on CKD Likely due to ATN Renal function improved on IV fluid hydration -- Hypertension, stable -- Illicit drug use Patie admits cocain use 05/30, 06/15 Discussed cacain use cessation --Anxiety and depression Patient came from [facility] hospital due to reduced kidney function Resumed ant Psychotic meds Psych consulted -- Diabetes type 2 Pt reports hx of diabetes on Metformin held metformin in the setting of MAIK Monitor blood sugar with SSI, hypoglycemia protocol Hga1c 5.7 -- Metabolic acidosis, improved likely 2/2 MAIK s/p bicarb gtt Monitor kidney function -- Hyponatremia possible 2/2 to reduced kidney function/dehydration Monitored sodium levels, given IV fluid --Morbid obesity with BMI 46.7 Weight reduction counseling with diet and exercise when clinically stable as outpatient --Anemia of chronic disease, monitored H&H -- DVT prophylaxis, coumadin Disposition: [id number]/[id number] PSY HOSP/PSY UNIT Time spent for discharge: 34 minutes Core Measure Documentation - Palliative Care Palliative Care/ Comfort Measures: Not Applicable - Core Measures Any of the following diagnoses?: none Exam - Physical Exam Narrative exam: GENERAL: well-developed and morbidly obese -[place]ij[place] male lying on bed appeared to be in no discomfort. HEENT: Normocephalic. Atraumatic. No conjunctival congestion or icterus. Patient has moist mucous membranes. NECK: Supple. Trachea midline. CHEST/LUNGS: Clear to auscultated bilaterally, breathing nonlabored. No wheezes crackles or rhonchi. HEART/CARDIOVASCULAR: Regular in rate and rhythm. S1 and S2 positive. ABDOMEN: Abdomen is soft, nontender. Patient has normal bowel sounds. SKIN: There is no rash. Warm and dry. NEURO: No focal motor deficit. Follows command. MUSCULOSKELETAL: No joint effusion or tenderness. EXTRIMITY: No edema, no cyanosis or clubbing. PSYCH: Cooperative. - Constitutional Vitals: Temp Pulse Resp BP Pulse Ox 98.0 F 70 18 120/61 96 06/30/20 08:05 06/30/20 08:05 06/30/20 08:05 06/30/20 08:05 06/30/20 08:05 Plan Activity: advance as tolerated Weight Bearing Status: Non-Weight Bearing Diet: renal Special Instructions: record blood sugar diary Additional Instructions: repeat BMP in one week. Check INR by Sunday Follow up with: KENDALL OLIVA MD [Primary Care Provider] - 7 Days MIGUEL RITTER MD [Staff Physician] - 7 Days KATHERINE FLORES MD [Staff Physician] - 7 Days Forms: Warfarin Discharge Instruction
[2020-06-30] MEDS ORDERED: WARFARIN 5 MG TAB PO SCH (17:00)
--- NOTE | 2020-06-30 18:15 | Progress Note ---
Assessment and Plan # Acute Kidney Injury: unclear cause of MAIK, per patient creatinine around 2 recently. Denies any toxic ingestion with panels mostly WNL. Potential glomerular causes given hematuria, no proteinuria noted. Little to suggest interstitial injury. BP reasonable. Potential injury from IV drug use. - renal ultrasound without acute obstruction, does show echogenic kidneys - toxicology reviewed as available, ordered methanol/isopropyl/ethanol screens but no results - serologies ordered and pending; CK WNL for consideration of rhabdo - creatinine improved with NS - Can discontinue IVF and maintain adequate oral hydration - strict Is/Os - avoid nephrotoxins - holding home diuretic, SHIRA/ARB - repeat urinalysis # Hypovolemic hyponatremia: Improved with IV saline. Encouraged adequate oral fluid intake and hydration. # HTN: Continue amlodipine 10mg # Acidosis: likely due to MAIK, no "ingestions" per patient. Continue sodium bicarb tabs. # Illicit Drug Use: noted per primary # Depression: appreciate psych input # DM: agree with holding metformin # Secondary Hyperparathyroidism: P mildly high, PTH reasonable for this kidney function Subjective Date of service: 06/30/20 Principal diagnosis: Rule out cellulitis Interval history: Patient was seen for his renal issues Nursing, interdisciplinary and consult notes were reviewed Vitals, input and output, medications and labs were reviewed Awake and alert. Notes good urine output. Objective - Exam Narrative Exam: Constitutional: No acute distress Head: Normocephalic/atraumatic Neck: Supple Lungs: Clear to auscultation bilaterally Cardiovascular: RRR, no M/R/G Abdomen: Soft, nontender, NABS Back, nontender Extremities: No edema, pulses within normal limits Skin: Intact, no rash Neuro: Alert and oriented 3, no focal deficits - Vital Signs Vital signs: Vital Signs - 12hr 06/30/20 06/30/20 08:05 15:29 Temperature 98.0 F 98.4 F Pulse Rate 70 70 Respiratory 18 18 Rate Blood Pressure 120/61 142/72 O2 Sat by Pulse 96 96 Oximetry - Lab 06/30/20 05:34 06/30/20 11:10 Most recent lab results Calcium 8.4 mg/dL (8.4-10.2) 06/30/20 11:10 Phosphorus 4.90 mg/dL (2.5-4.5) H 06/24/20 01:57 Magnesium 1.90 mg/dL (1.7-2.3) 06/24/20 01:57 Urine Creatinine 69.2 mg/dL (0.1-20.0) H 06/24/20 Unknown Urine Sodium 74 mmol/L 06/24/20 06:00 Urine Total Protein 33 mg/dL (5-11.8) H 06/24/20 Unknown Medications & Allergies - Medications Allergies/Adverse Reactions: Allergies No Known Allergies Allergy (Verified 06/24/20 00:07) Home Medications: Home Medications Medication Instructions Recorded Confirmed Last Taken Type ARIPiprazole [Abilify TAB] 10 mg PO QDAY tablet 06/30/20 Unknown Rx FLUoxetine [PROzac] 40 mg PO QDAY capsule 06/30/20 Unknown Rx Insulin Lispro [Humalog] 0 unit SUB-Q ACHS vial 06/30/20 Unknown Rx QUEtiapine [SEROquel] 50 mg PO QHS tablet 06/30/20 Unknown Rx Sodium Bicarbonate 1,300 mg PO TIDWM tablet 06/30/20 Unknown Rx Warfarin [Coumadin] 5 mg PO DAILY@1700 tablet 06/30/20 Unknown Rx amLODIPine 10 mg PO QDAY tablet 06/30/20 Unknown Rx traZODone [Desyrel] 50 mg PO QHS PRN tablet 06/30/20 Unknown Rx Active Medications: Generic Name Dose Route Start Last Admin Trade Name Freq PRN Reason Stop Dose Admin Amlodipine Besylate 10 mg 06/27/20 10:00 06/29/20 11:25 Amlodipine 10 Mg Tab PO 10 mg QDAY LYDIA Administration Aripiprazole 10 mg 06/24/20 10:00 06/29/20 11:25 Aripiprazole PO 10 mg QDAY LYDIA Administration Diphenhydramine HCl 25 mg 06/29/20 16:56 06/29/20 19:29 Diphenhydramine 25 Mg Cap PO 25 mg Q6H PRN Administration Itching Fluoxetine HCl 40 mg 06/24/20 10:00 06/29/20 11:25 Prozac PO 40 mg QDAY LYDIA Administration Sodium Chloride 1,000 mls @ 100 mls/hr 06/25/20 14:45 06/30/20 06:29 Nacl 0.9% 1000 Ml IV 100 mls/hr DIRECT LYDIA Administration Insulin Human Lispro 0 unit 06/24/20 07:30 06/29/20 23:15 Humalog SUB-Q Not Given ACHS [facility] Protocol Labetalol HCl 10 mg 06/24/20 01:41 06/26/20 05:19 Labetalol 20 Mg/4 Ml Inj IV 10 mg Q6HR PRN Administration Hypertension Lactulose 20 gm 06/24/20 00:02 Cephulac PO QHS PRN Constipation Ondansetron HCl 4 mg 06/24/20 00:02 Zofran IV Q4H PRN Nausea And Vomiting Quetiapine Fumarate 50 mg 06/24/20 22:00 06/29/20 21:33 Seroquel PO 50 mg QHS [facility] Administration Sodium Bicarbonate 1,300 mg 06/28/20 20:00 06/29/20 16:51 Sodium Bicarbonate 650 Mg Tab PO 1,300 mg TIDWM [facility] Administration Tramadol HCl 25 mg 06/24/20 00:02 Ultram PO Q4H PRN Pain, Moderate (4-6) Trazodone HCl 50 mg 06/24/20 00:02 06/24/20 02:07 Desyrel PO 50 mg QHS PRN Administration Insomnia Warfarin Sodium 5 mg 06/30/20 17:00 Warfarin 5 Mg Tab PO DAILY@1700 [facility]
[2020-06-30] MEDS: QUEtiapine 25 MG TAB PO SCH (23:17)
[2020-06-30] MEDS ORDERED: cloNIDine 0.2 MG TAB PO ONE (23:51)
[2020-07-01 04:00] VITALS: BP 118/72
[2020-07-01 06:45] LABS: INR 2.22 (0.87-1.13)
== END 2020-07-01 07:54 | DRG 683 ==
LOC: ED 18:09 → 4A 23:25
PROVIDERS: ADMIT Internal Medicine Geriatric Medicine; ATTEND Internal Medicine
DX: N17.0 Acute kidney failure with tubular necrosis (principal); E87.1 Hypo-osmolality and hyponatremia; I82.412 Acute embolism and thrombosis of left femoral vein; I82.432 Acute embolism and thrombosis of left popliteal vein; E87.2 Acidosis; Z68.42 Body mass index [BMI] 45.0-49.9, adult; R45.851 Suicidal ideations; F10.99 Alcohol use, unspecified with unspecified alcohol-induced disorder; F31.30 Bipolar disorder, current episode depressed, mild or moderate severity, unspecified; Z21 Asymptomatic human immunodeficiency virus [HIV] infection status; Z86.711 Personal history of pulmonary embolism; F41.9 Anxiety disorder, unspecified; Z79.84 Long term (current) use of oral hypoglycemic drugs; F17.200 Nicotine dependence, unspecified, uncomplicated; E66.01 Morbid (severe) obesity due to excess calories; F14.10 Cocaine abuse, uncomplicated; Y90.9 Presence of alcohol in blood, level not specified; N25.81 Secondary hyperparathyroidism of renal origin; I12.9 Hypertensive chronic kidney disease with stage 1 through stage 4 chronic kidney disease, or unspecified chronic kidney disease; E11.22 Type 2 diabetes mellitus with diabetic chronic kidney disease; N18.9 Chronic kidney disease, unspecified; D64.9 Anemia, unspecified; E86.1 Hypovolemia
CPT/HCPCS: 36415; 71045; 76770; 80048; 80053; 80307; 80320; 81001; 82550; 82553; 82565; 82570; 82575; 82962; 83036; 83735; 83935; 83970; 84100; 84156; 84165; 84300; 85007; 85014; 85018; 85025; 85049; 85379; 85520; 85610; 85730; 86021; 86038; 86140; 86160; 86334; 87086; 87116; 90686; 93970; 96365; 96375; G0378; G0480; J1644; J1815; J2405; J7030; J7070